=== PATIENT | female | born 1965 | race Caucasian/White ===

== ENCOUNTER 2016-05-02 13:25 | Emergency (ER) | payer BC, OTHER ==
--- NOTE | 2016-05-02 16:18 | DIAGNOSTIC IMAGING REPORT ---
PROCEDURE: XR CHEST 1 VIEW INDICATION: Chest pain. 1 week status post coronary artery bypass graft. TECHNIQUE: Portable AP view (1450 hours). COMPARISON: None. FINDINGS: Suboptimal inspiration. Moderate to marked increased density at the left lung base with moderate parenchymal changes at the right lung base. Mild to moderate pulmonary edema. Status post mediastinotomy. Mild cardiomegaly. Mediastinum is within normal limits (allowing for the degree of inspiration). Thorax is normal. IMPRESSION: 1. Moderate to marked left basilar consolidation/atelectasis/effusion with moderate parenchymal changes at the right lung base. Findings are compatible with pneumonia. 2. Mild cardiomegaly with mild to moderate pulmonary edema. Consider congestive heart failure. 3. Status post median sternotomy and coronary artery bypass graft.
--- NOTE | 2016-05-02 16:23 | DIAGNOSTIC IMAGING REPORT ---
PROCEDURE: CTA THORAX WITH CONTRAST INDICATION: Chest pain. Shortness of breath. 1 week status post CABG. TECHNIQUE: 84 ml of Isovue 370 was injected intravenously and axial images were obtained of the entire thorax with 3D sagittal and coronal MIP reconstructions. COMPARISON: Comparison is made to chest x-ray earlier today. FINDINGS: Study is partially limited due to respiratory motion and suboptimal opacification of peripheral vessels. Allowing for this, no large central emboli are identified (although subtle peripheral emboli would be difficult to exclude) . There is dense consolidation/atelectasis at the left lung base with small to moderate left pleural effusion. There are moderate parenchymal changes throughout the rest of the lungs with superimposed pulmonary edema. Status post median sternotomy. Mild cardiomegaly. Mild degenerative changes of the thoracic spine. IMPRESSION: 1. Allowing for suboptimal opacification of peripheral vessels, no large central emboli are identified (although subtle peripheral emboli would be difficult to exclude). 2. Dense consolidation/atelectasis at the left lung base with small to moderate left pleural effusion. 3. Moderate parenchymal changes throughout the lungs compatible with pneumonia (e.g., viral, aspiration, bacterial). 4. Mild cardiomegaly with superimposed pulmonary edema suggest occult/mild congestive heart failure. 2. Findings discussed with Dr. Justino An. All CT scans at this facility use dose modulation, iterative reconstruction, and/or weight-based dosing when appropriate to reduce radiation dose to as low as reasonably achievable.
--- NOTE | 2016-05-02 16:45 | ED ORDER SUMMARY ---
..... Patient: MICHAEL DELGADO OrderSheet [facility] VisitID: [id number] [address] [place], [place] [id number], F Registration Date/Time: 05/02/2016 ORDER SHEET Weight: 67.5 kg (stated) Allergies: Keflex GENERAL ORDERS: EKG - ER Stat (13:35 05/02/2016 Umer R.NCalvin verbal order read back to Zulma NEWMAN) (13:50 Umer R.N.) Chest 1V Urgent (13:48 05/02/2016 Zulma NEWMAN) (Ack 13:57 Rashard) (14:52 Sixto R.N.) [employer] (Continuous) (13:49 05/02/2016 Zulma NEWMAN) (13:50 Umer R.N.) CBC w Diff Urgent (13:49 05/02/2016 Zulma NEWMAN) (Ack 13:57 Rashard) (14:07 Umer R.N.) CMP Urgent (13:49 05/02/2016 Zulma NEWMAN) (Ack 13:57 Rashard) (14:07 Umer R.N.) UA-Culture if indicated Urgent (13:49 05/02/2016 Zulma NEWMAN) (Ack 13:57 Rashard) (15:13 Sixto R.N.) PT with INR Urgent (13:49 05/02/2016 Zulma NEWMAN) (Ack 13:57 Rashard) (14:07 Umer R.N.) PTT Urgent (13:49 05/02/2016 Zulma NEWMAN) (Ack 13:57 Rashard) (14:07 Umer R.N.) Amylase Urgent (13:49 05/02/2016 Zulma NEWMAN) (Ack 13:57 Rashard) (14:07 Butchitz R.N.) Lipase Urgent (13:49 05/02/2016 Zulma NEWMAN) (Ack 13:57 Rashard) (14:07 Umer R.N.) CPK Urgent (13:49 05/02/2016 Zulma NEWMAN) (Ack 13:57 Rashard) (14:07 Butchitz R.N.) Troponin-I Urgent (13:49 05/02/2016 Zulma NEWMAN) (Ack 13:57 Rashard) (14:07 Umer R.N.) D-Dimer Urgent (13:49 05/02/2016 Zulma NEWMAN) (Ack 13:57 Rashard) (14:07 Umer R.N.) Urine Urgent (13:49 05/02/2016 Zulma NEWMAN) (Ack 13:57 Rashard) (15:13 Sixto R.N.) BNP Urgent (13:49 05/02/2016 Zulma NEWMAN) (Ack 13:57 Rashard) (14:07 Umer R.N.) Oxygen (2 L/min) (NC) (13:49 05/02/2016 Zulma NEWMAN) (13:50 Umer R.N.) Pulse oximeter (13:49 05/02/2016 Zulma NEWMAN) (13:50 Umer R.N.) EKG - ER Stat (13:49 05/02/2016 Zulma NEWMAN) (13:50 Umer R.N.) PCT (Procalcitonin) Urgent (14:29 05/02/2016 Zulma NEWMAN) (14:36 Sixto R.N.) CTA Thorax w Cont (No) (N/A) Urgent (15:03 05/02/2016 Zulma NEWMAN) (15:07 Sixto R.N.) Blood Culture (No) (N/A) Urgent (16:24 05/02/2016 Zulma NEWMAN) (Ack 16:30 Rashard) (17:04 Sixto R.N.) MEDICATION ORDERS: NitroGLYCERIN Paste Topical 1 in. (NOW, to ) (16:40 05/02/2016 Zulma NEWMAN) (16:45 Umer R.N.) Tylenol PO 1,000 mg (NOW) (17:13 05/02/2016 Umer Dhillon.N. verbal order read back to Zulma NEWMAN) (17:14 Umer R.N.) IV FLUIDS: IV Saline Lock (13:49 05/02/2016 Zulma NEWMAN) (13:51 Umer R.N.) IV NS : initial bolus 250 mL (1000 mL/hr), then 125 mL/hr for X1 (NOW) (14:08 05/02/2016 SReitz R.N. verbal order read back to Zulma NEWMAN) (14:10 SReitz R.N.) Morphine IV 4 mg (NOW) (14:09 05/02/2016 SReitz R.N. verbal order read back to Zulma NEWMAN) (14:10 SReitz R.N.) Ativan IV 0.5 mg (HIGH ALERT MEDICATION, NOW) (15:19 05/02/2016 Zulma NEWMAN) (15:27 Attilas R.N.) Lasix IV 40 mg (NOW) (16:26 05/02/2016 Zulma NEWMAN) (Ack 16:31 Attilas R.N.) (16:46 SReitz R.N.) Levaquin IV 750 mg/150 mL (NOW) (16:27 05/02/2016 Zulma NEWMAN) (Ack 16:30 Attilas R.N.) Clindamycin IV 900 mg/50mL (NOW) (16:27 05/02/2016 Zulma NEWMAN) (Ack 16:30 Attilas R.N.) (16:51 SReitz R.N.) ORDER SHEET NOTES: [Electronically signed by Deborah Villalobos R.N. (18:21 05/02/2016)] [Electronically signed by Justino An MD (18:34 05/02/2016)] [Electronically locked/signed by Deborah Villalobos R.N. (18:21 05/02/2016)]
--- NOTE | 2016-05-02 16:45 | ED NURSING NOTES ---
Clinical Report - Nurses [facility] [address] [place] [address] 05/02/2016 13:27 Patient: MICHAEL DELGADO TRIAGE Triage time 13:35. Acuity: LEVEL 2. Chief Complaint: CHEST PAIN and SHORTNESS OF BREATH and DIFFICULTY BREATHING. Alert. No acute distress. ( Pt. states she just was d/c'ed from [place] on wed from post op cardiac cath surgery. She had a 4 way by pass. She is here today because she is having b/l severe chest pain which feels like someone is taking a "knife and stabbing me."). SEPSIS SCREEN: Sepsis Screen. Negative (no infection suspected/documented). LEIDY COMA SCORE: [place] Coma Scale: 15- eyes open spontaneously (4); best verbal response- oriented x 4 (5); best motor response- obeys commands (6). --13:45 Sydni Galvan R.N. 13:36 05/02/16. HR: 60. RR: 28. O2 saturation: 97% on nasal cannula at 4 liters/minute. Temp: 98.1 F. Pain level now 10/10. --13:45 Sydni Galvan R.N. ( re: O2 sat% pt is on home O2 4L). --14:10 Sydni Galvan R.N. 13:36. --15:19 Sydni Galvan R.N. Weight: 67.5 kg stated. Height/Length: 59 inches Per Patient. BMI: 30.1. --13:38 Sydni Galvan R.N. Medications ALPRAZolam Oral 0.5 mg, 3x a day as needed. Aspirin Oral. Atorvastatin Calcium Oral 40 mg, daily. FLUoxetine HCl Oral 20 mg, daily. Metoprolol Tartrate Oral 25 mg, x2 daily. --13:40 Sydni Galvan R.N. Acetaminophen Oral, Q6H as needed. --14:16 Sydni Galvan R.N. Albuterol Sulfate Inhalation. --14:16 Sydni Galvan R.N. Docusate Sodium Oral (Capsule 100 mg), x2 daily. --14:17 Sydni Galvan R.N. Furosemide Oral 40 mg, daily. --14:17 Sydni Galvan R.N. Ibuprofen Oral 600 mg, 4x a day. --14:18 Sydni Galvan R.N. OxyCODONE HCl Oral 5 mg, 1-2 tabs Q6H. --14:19 Sydni Galvan R.N. Potassium Chloride ER Oral (Tablet Extended Release 20 meq) 1 tablet, daily. --14:19 Sydni Galvan R.N. Aspir-81 Oral, daily. --14:19 Sydni Galvan R.N. B-12 Oral, daily. --14:20 Sydni Galvan R.N. BuPROPion HCl Oral 150 mg, daily. --14:20 Sydni Galvan R.N. Clopidogrel 75mg x1 daily. --14:21 Sydni Galvan R.N. Sertraline HCl Oral 100 mg, daily. --14:24 Sydni Galvan R.N. Vitamin D Oral (Tablet 400 unit), daily. --14:24 Sydni Galvan R.N. The following entry was struck and corrected by Sydni Galvan R.N., 14:23 (05/02/16) Reason for correction - other(correction). <<STRICKEN ENTRY-- FLUoxetine HCl Oral. --13:40 Sydni Galvan R.N. --END STRIKE>> The following entry was struck and corrected by Sydni Galvan R.N., 14:20 (05/02/16) Reason for correction - other(correction). <<STRICKEN ENTRY-- Atorvastatin Calcium Oral. --13:40 Sydni Galvan R.N. --END STRIKE>> The following entry was struck and corrected by Sydni Galvan R.N., 14:18 (05/02/16) Reason for correction - other(correction). <<STRICKEN ENTRY-- Metoprolol Tartrate Oral. --13:40 Sydni Galvan R.N. --END STRIKE>> The following entry was struck and corrected by Sydni Galvan R.N., 14:16 (05/02/16) Reason for correction - other(correction). <<STRICKEN ENTRY-- ALPRAZolam Oral. --13:40 Sydni Galvan R.N. --END STRIKE>>. Allergies Keflex. --13:40 Sydni Galvan R.N. The following entry was struck by Sydni Galvan R.N., 13:40 (05/02/16) Reason - other. <<STRICKEN ENTRY-- No Known Drug Allergy. --13:40 Sydni Galvan R.N. --END STRIKE>>. History Arrived by private vehicle. Historian: patient. Accompanied by spouse. Primary physician (Dr. Freedman). This started today. Treatment BLOCKER HEATED METAL FORMS: (oxycodone 10mg BLOCKER HEATED METAL FORMS). PAST MEDICAL HX: Immunizations: status is unknown. SOCIAL HX: Heavy tobacco smoker (cigarette)- less than 1 pack per day. Occasional alcohol use. No drug use. No infectious disease exposure. ABUSE ASSESSMENT: No report of abuse. NUTRITIONAL RISK ASSESSMENT: The nutritional risk assessment revealed no deficiencies. FUNCTIONAL ASSESSMENT: Functional assessment: no impairments noted. LEARNING NEEDS ASSESSMENT: The learning needs assessment revealed no barriers. --13:45 Sydni Galvan R.N. FALL RISK ASSESSMENT: Fall risk assessment completed per protocol. Risk factors identified include patient medications. Fall interventions initiated. Patient placed on stretcher. Side rails up x2. Brakes on Bed in low position. Patient visible from nurses' station and identified as a fall risk by ID band. Family at bedside. Call light in reach of patient. Instructed not to get up without assistance. --15:19 Sydni Galvan R.N. PROBLEMS: Heart Disease. Substance Abuse. Depression. Alcohol Intoxication. Anxiety Reaction. Asthma. Bronchitis. Bronchospasm. --13:40 Sydni Galvan R.N. Hyperlipidemia. --14:25 Sydni Galvan R.N. The following entry was modified by Sydni Galvan R.N., 14:13 Reason - other <<STRICKEN ENTRY-- Myocardial Infarction. --14:12 Sydni Galvan R.N. --END STRIKE>>. ADDITIONAL SURGERIES: Cardiac Catheterization. --13:40 Sydni Galvan R.N. "Open heart bypass". X 2 cardiac caths . --14:12 Sydni Galvan R.N. Interventions ID band on patient. Transported via wheelchair. --13:45 Sydni Galvan R.N. Allergy band on patient. --14:55 Sydni Galvan R.N. PHYSICAL ASSESSMENT 13:35. To room via wheelchair. GENERAL / NEURO / PSYCH: Alert. Oriented X 4. Appears anxious. RESPIRATORY: Mild respiratory distress. CVS: Pulses within normal limits. Capillary refill less than 2 seconds. EXTREMITIES: No lower extremity edema. SKIN: Skin is pale. Skin is warm and dry. --13:46 Sydni Galvan R.N. <<STRICKEN ENTRY-- ( 13:5 b/l incisions noted on UE from graft sights). --16:46 Sydni Galvan R.N. --END STRIKE>> Correction --16:46 Sydni Galvan R.N. ( 13:35 b/l incisions noted on UE from graft sights.). --16:47 Sydni Galvan R.N. NURSING PROGRESS NOTES Oxygen administered by nasal cannula at 4 liters. desk monitor, pulse oximeter and NIBP monitor placed on patient; personnel monitor- Lead II; monitor alarms on. Patient gowned. Head of bed elevated. Two patient identifiers checked. Call light placed in reach. Side rails up x 2. Bed placed in lowest position. Brakes of bed on. Patient ready for evaluation- chart flagged. --13:46 Sydni Galvan R.N. 13:45 05/02/2016 Site #1 started via IV in the right hand with an 20g angiocath, with aseptic technique and good blood return; one attempt. Blood drawn: rainbow set. Labeled in the presence of the patient and sent to the lab. Saline lock flushed with 10 mL saline (Accessed by JEFFERSON Culver). --13:47 Sydni Galvan R.N. 13:51 05/02/2016 Site #2 started via IV in the left hand with an 20g angiocath, with aseptic technique and good blood return; one attempt. Blood drawn: cultures x1. Sent to the lab. Saline lock flushed with 10 mL saline (lactate drawn. Accessed by Sharon Dhillon RN). --13:51 Sydni Galvan R.N. 14:00 05/02/2016 Started bag #1 1000 mL IV Fluids IV NS (Saline); at 1000 mL/hr over 15 minute(s) via site #2 via IV pump. Allergies verified and confirmed 5 rights. IV patency established. IV site checked: no pain, redness, or swelling. IV flushed thoroughly pre- and post-medication administration. --14:10 Sydni Galvan R.N. 14:02 05/02/2016 Morphine IVP 4 mg given over 2 minute(s) via site #2. Allergies verified, confirmed 5 rights and sedative warning given to the patient. IV patency established. IV site checked: no pain, redness, or swelling. IV flushed thoroughly pre- and post-medication administration. --14:10 Sydni Galvan R.N. 14:10 05/02/2016 Morphine IVP Response: no adverse reaction pain is improving. The patient feels better. (pt reports pain is 1/10.). --14:11 Sydni Galvan R.N. 14:11. ( pt. transfered to trauma room in direct vision of nurses station.). --14:14 Sydni Galvan R.N. 14:14 05/02/16. BP: 106/65. HR: 58. RR: 15. O2 saturation: 90%. Pain level now 1/10. --14:15 Sydni Galvan R.N. ( lab at the bedside for re-draw.). --14:25 Sydni Galvan R.N. Care transferred and report given (to SR Deborah). --14:25 Sydni Galvan R.N. 14:29 05/02/2016 IV Fluids IV NS via IV site #2 Rate Changed: bag #1 decreased to 75 mL/hr via IV pump. IV patency established. IV site checked: no pain, redness, or swelling. IV flushed thoroughly. Confirmed 5 Rights. --14:29 Deborah Villalobos R.N. 14:30 05/02/16. BP: 115/76 (regular adult cuff) taken on the left arm, while sitting. HR: 62. RR: 18 (regular). O2 saturation: 94% on nasal cannula at 4 liters/minute. Pain level now: 03/20. --14:31 Deborah Villalobos R.N. ( Patient calm, resting with at bedside). --14:31 Deborah Villalobos R.N. 14:41 05/02/16. BP: 105/67 (regular adult cuff) taken on the right arm, while sitting. HR: 63. RR: 16. O2 saturation: 95% on nasal cannula at 4 liters/minute. --14:42 Deborah Villalobos R.N. <<STRICKEN ENTRY-- Patient transported to radiology by stretcher with tech. (14:48 May 02 2016). --14:48 Deborah Villalobos R.N. --END STRIKE>> Correction --14:52 Deborah Villalobos R.N. ( Patient had a portable CXR done now). --14:52 Deborah Villalobos R.N. Critical value relayed to ED by Chris 15:May 02 2016. Critical value received by Deborah 15:May 02 2016. 6.3 DDimer. Critical value read back. Verified lab result. Provider notifed of critical value (Dr An). ( Chris mitchell 6.3 DDimer). --15:01 Deborah Villalobos R.N. ( CT Deshawn notified of CTA of Thorax, he will come evaluate if this can be done with IV in place at [facility]). --15:06 Deborah Villalobos R.N. 15:02 05/02/16. BP: 117/71 (regular adult cuff) taken on the left arm, while sitting. HR: 66. RR: 16. O2 saturation: 96% on nasal cannula at 4 liters/minute. --15:06 Deborah Villalobos R.N. Patient transported to CT by stretcher with tech. (15:26 May 02 2016). --15:26 Deborah Villalobos R.N. 15:22 05/02/2016 Ativan (LORazepam) IVP 0.5 mg given over 1 minute(s) via site #1. Allergies verified, confirmed 5 rights and sedative warning given to the patient. IV patency established. IV site checked: no pain, redness, or swelling. IV flushed thoroughly pre- and post-medication administration. IVP given by RN. --15:27 Deborah Villalobos R.N. ( [facility] records [facility] --[facility] from CT by phillip with tech. (15:36 May 02 2016). --15:36 Deborah Villalobos R.N. 15:39 05/02/16. BP: 101/62 (regular adult cuff) taken on the left arm, while sitting. HR: 69. RR: 16 (regular). O2 saturation: 98% on nasal cannula at 4 liters/minute. Pain level now: 510. --15:40 Deborah Villalobos R.N. 15:52 05/02/16. BP: 106/73 (regular adult cuff) taken on the left arm, while sitting. HR: 66. RR: 16 (regular). O2 saturation: 98% on nasal cannula at 4 liters/minute. Pain level now: 5/10. --15:53 Deborah Villalobos R.N. 15:43 05/02/2016 Ativan IVP Response: no adverse reaction pain is gone now. Symptoms have improved the patient feels better. --15:53 Deborah Villalobos R.N. 16:12 05/02/16. BP: 108/72 (regular adult cuff) taken on the left arm, while sitting. HR: 62. RR: 18 (regular). O2 saturation: 99% on nasal cannula at 4 liters/minute. Pain level now: 5/10. --16:14 Deborah Villalobos R.N. ( Patient up to use bedside commode, urinated clear yellow urine 250cc). --16:14 Deborah Villalobos R.N. ( Patient given some apple juice per request). --16:27 Deborah Villalobos R.N. 16:26 05/02/16. BP: 108/72. HR: 65. RR: 20. O2 saturation: 100% on nasal cannula at 4 liters/minute. Pain level now: 06/17. --16:27 Deborah Villalobos R.N. 16:45 05/02/2016 NITROGLYCERIN PASTE Topical 1 inch. Applied to the right chest. Allergies verified and confirmed 5 rights. --16:45 Sydni Galvan R.N. 16:46 05/02/2016 Lasix IVP 40 mg given over 2 minute(s) via site #2. Allergies verified and confirmed 5 rights. IV patency established. IV site checked: no pain, redness, or swelling. IV flushed thoroughly pre- and post-medication administration (administered by JEFFERSON Cabrera). --16:46 Sydni Galvan R.N. 16:48 05/02/16. BP: 123/74. HR: 66. RR: 16. O2 saturation: 96%. Pain level now 09/17. --16:51 Sydni Galvan R.N. 16:51 05/02/2016 Started 900 mg of Clindamycin IVPB in bag #1 50 mL; at 100 mL/hr over 30 minute(s) via site #2 via IV pump. Allergies verified and confirmed 5 rights. IV patency established. IV site checked: no pain, redness, or swelling. IV flushed thoroughly pre- and post-medication administration. --16:51 Sydni Galvan R.N. 16:56 05/02/16. BP: 114/84 (regular adult cuff) taken on the left arm, while sitting. HR: 69. RR: 18 (regular). O2 saturation: 97% on nasal cannula at 4 liters/minute. Pain level now: 09/17. --16:56 Deborah Villalobos R.N. 17:14 05/02/2016 Tylenol (Acetaminophen) PO 1000 mg given. Allergies verified and confirmed 5 rights. --17:14 Sydni Galvan R.N. 17:18 05/02/16. ( BP reported to physician, if SBP <90 will take off nitro paste). --17:18 Deborah Villalobos R.N. 17:20 05/02/2016 Clindamycin IVPB Discontinued: bag #2 completed. Total amount infused: 50 mL. IV patency established. IV site checked: no pain, redness, or swelling. IV flushed thoroughly. --17:20 Deborah Villalobos R.N. ( Patient up to use restroom, urinated approximately 250cc clear pale yellow urine). --17:21 Deborah Villalobos R.N. 17:21 05/02/16. BP: 93/71 (regular adult cuff) taken on the right arm, while sitting. HR: 70. RR: 16. O2 saturation: 95% on nasal cannula at 4 liters/minute. Temp: 98.6 F (oral). --17:23 Deborah Villalobos R.N. 17:28 05/02/16. BP: 91/69 (regular adult cuff) taken on the right arm, while sitting. HR: 69 (regular). RR: 18. O2 saturation: 94% on nasal cannula at 4 liters/minute. --17:28 Deborah Villalobos R.N. 17:32 05/02/2016 NITROGLYCERIN PASTE Topical Response: no adverse reaction pain is improving. Symptoms are the same. The patient feels the same. (Nitro paste wiped off due to hypotension.). --17:32 Deborah Villalobos R.N. 17:33 05/02/16. BP: 93/64 (regular adult cuff) taken on the right arm, while sitting. HR: 66. O2 saturation: 92% on nasal cannula at 4 liters/minute. --17:34 Deborah Villalobos R.N. ( Dr An wants SBP >110 before starting Levaquin). --17:36 Deborah Villalobos R.N. 17:35 05/02/16. BP: 97/73 (regular adult cuff) taken on the right arm, while sitting. HR: 75. O2 saturation: 95% on nasal cannula at 4 liters/minute. --17:36 Deborah Villalobos R.N. 17:40 05/02/16. BP: 101/68 (regular adult cuff) taken on the right arm, while sitting. HR: 65. RR: 18. O2 saturation: 94% on nasal cannula at 4 liters/minute. --17:41 Deborah Villalobos R.N. 17:45 05/02/16. BP: 97/70 (regular adult cuff) taken on the right arm, while sitting. HR: 66. O2 saturation: 94% on nasal cannula at 4 liters/minute. --17:46 Deborah Villalobos R.N. 17:51 05/02/16. BP: 94/64 (regular adult cuff) taken on the right arm, while sitting. HR: 72. O2 saturation: 95% on nasal cannula at 4 liters/minute. --17:51 Deborah Villalobos R.N. Intake & Output PO intake: 50. IV fluids: 300 mL. Urine, with return of >1000 mL yellow-colored urine. --17:28 Deborah Villalobos R.N. DISPOSITION / DISCHARGE 18:00 05/02/16. BP: 106/72 (regular adult cuff) taken on the right arm, while sitting. HR: 69. RR: 18 (regular). O2 saturation: 94% on nasal cannula at 4 liters/minute. Pain level now: 09/17. --18:07 Deborah Villalobos R.N. 18:05 05/02/2016 Site #[address] upon transfer; patent, no pain and no signs of infection or infiltration. Good blood return present. Flushed with 10 mL saline; flushes easily. --18:21 Deborah Villalobos R.N. 18:06 05/02/2016 Site #[address] upon transfer; patent, no pain and no signs of infection or infiltration. Good blood return present. Flushed with 10 mL saline; flushes easily. --18:21 Deborah Villalobos R.N. 18:07 05/02/16. Departure time: 18:May 02 2016. Condition at departure: stable. Transferred to [facility]. Summary of care provided to transport team via paper and fax (18:May 02 2016). Transported via stretcher by nurse, EMS and transport team with O2. Report was given to a nurse via a phone call. Report included patient's care, treatment, medications, reviewed medication reconcilliation, and condition (including any recent changes or anticipated changes). All questions were answered. Report was acknowledged and care was transferred. (JEFFERSON Thomas). Patient's personal items include, All property sent with patients . --18:07 Deborah Villalobos R.N. Locked/Released at 05/02/2016 18:21 by Deborah Villalobos R.N.
--- NOTE | 2016-05-02 16:45 | ED ORDER SUMMARY ---
..... Patient: MICHAEL DELGADO OrderSheet [facility] VisitID: [id number] [address] [place], [place] [id number] 50y, F Registration Date/Time: 05/02/2016 ORDER SHEET Weight: 67.5 kg (stated) Allergies: Keflex GENERAL ORDERS: EKG - ER Stat (13:35 05/02/2016 Umer R.NCalvin verbal order read back to Zulma NEWMAN) (13:50 Umer R.N.) Chest 1V Urgent (13:48 05/02/2016 Zulma NEWMAN) (Ack 13:57 Rashard) (14:52 Sixto R.N.) Driver Messenger (Continuous) (13:49 05/02/2016 Zulma NEWMAN) (13:50 Umer R.N.) CBC w Diff Urgent (13:49 05/02/2016 Zulma NEWMAN) (Ack 13:57 Rashard) (14:07 Umer R.N.) CMP Urgent (13:49 05/02/2016 Zulma NEWMAN) (Ack 13:57 Rashard) (14:07 Umer R.N.) UA-Culture if indicated Urgent (13:49 05/02/2016 Zulma NEWMAN) (Ack 13:57 Rashard) (15:13 Sixto R.N.) PT with INR Urgent (13:49 05/02/2016 Zulma NEWMAN) (Ack 13:57 Rashard) (14:07 Umer R.N.) PTT Urgent (13:49 05/02/2016 Zulma NEWMAN) (Ack 13:57 Rashard) (14:07 Umer R.N.) Amylase Urgent (13:49 05/02/2016 Zulma NEWMAN) (Ack 13:57 Rashard) (14:07 Butchitz R.N.) Lipase Urgent (13:49 05/02/2016 Zulma NEWMAN) (Ack 13:57 Rashard) (14:07 Umer R.N.) CPK Urgent (13:49 05/02/2016 Zulma NEWMAN) (Ack 13:57 Rashard) (14:07 Butchitz R.N.) Troponin-I Urgent (13:49 05/02/2016 Zulma NEWMAN) (Ack 13:57 Rashard) (14:07 Umer R.N.) D-Dimer Urgent (13:49 05/02/2016 Zulma NEWMAN) (Ack 13:57 Rashard) (14:07 Umer R.N.) Urine Urgent (13:49 05/02/2016 Zulma NEWMAN) (Ack 13:57 Rashard) (15:13 Sixto R.N.) BNP Urgent (13:49 05/02/2016 Zulma NEWMAN) (Ack 13:57 Rashard) (14:07 Umer R.N.) Oxygen (2 L/min) (NC) (13:49 05/02/2016 Zulma NEWMAN) (13:50 Umer R.N.) Pulse oximeter (13:49 05/02/2016 Zulma NEWMAN) (13:50 Umer R.N.) EKG - ER Stat (13:49 05/02/2016 Zulma NEWMAN) (13:50 Umer R.N.) PCT (Procalcitonin) Urgent (14:29 05/02/2016 Zulma NEWMAN) (14:36 Sixto R.N.) CTA Thorax w Cont (No) (N/A) Urgent (15:03 05/02/2016 Zulma NEWMAN) (15:07 Sixto R.N.) Blood Culture (No) (N/A) Urgent (16:24 05/02/2016 Zulma NEWMAN) (Ack 16:30 Rashard) (17:04 Sixto R.N.) MEDICATION ORDERS: NitroGLYCERIN Paste Topical 1 in. (NOW, to ) (16:40 05/02/2016 Zulma NEWMAN) (16:45 Umer R.N.) Tylenol PO 1,000 mg (NOW) (17:13 05/02/2016 Umer Dhillon.N. verbal order read back to Zulma NEWMAN) (17:14 Umer R.N.) IV FLUIDS: IV Saline Lock (13:49 05/02/2016 Zulma NEWMAN) (13:51 Umer R.N.) IV NS : initial bolus 250 mL (1000 mL/hr), then 125 mL/hr for X1 (NOW) (14:08 05/02/2016 SReitz R.N. verbal order read back to Zulma NEWMAN) (14:10 SReitz R.N.) Morphine IV 4 mg (NOW) (14:09 05/02/2016 SReitz R.N. verbal order read back to Zulma NEWMAN) (14:10 SReitz R.N.) Ativan IV 0.5 mg (HIGH ALERT MEDICATION, NOW) (15:19 05/02/2016 Zulma NEWMAN) (15:27 Attilas R.N.) Lasix IV 40 mg (NOW) (16:26 05/02/2016 Zulma NEWMAN) (Ack 16:31 Attilas R.N.) (16:46 SReitz R.N.) Levaquin IV 750 mg/150 mL (NOW) (16:27 05/02/2016 Zulma NEWMAN) (Ack 16:30 Attilas R.N.) Clindamycin IV 900 mg/50mL (NOW) (16:27 05/02/2016 Zulma NEWMAN) (Ack 16:30 Attilas R.N.) (16:51 SReitz R.N.) ORDER SHEET NOTES: [Electronically signed by Deborah Villalobos R.N. (18:21 05/02/2016)] [Electronically signed by Justino An MD (18:34 05/02/2016)] [Electronically locked/signed by Deborah Villalobos R.N. (18:21 05/02/2016)]
--- NOTE | 2016-05-02 16:45 | ED CLINICAL REPORT ---
Clinical Report - Physicians/Mid Levels [facility] [address] [place] [address] 05/02/2016 13:27 Patient: MICHAEL DELGADO Time Seen: 13:29. Arrived- By private vehicle. Historian- patient. HISTORY OF PRESENT ILLNESS Chief Complaint: CHEST DISCOMFORT. This started today and is still present. It was abrupt in onset and has been constant. Onset during sleep. At its maximum, severity described as 10 / 10. When seen in the E.D., severity described as 9 / 10. Modifying factors- worsened by deep breaths. It is described as sharp and it is described as located in the right chest and left chest area and radiating to the right upper back. The patient has had difficulty breathing. No diaphoresis. Recent medical care: The patient was seen recently at another facility and hospitalized. REVIEW OF SYSTEMS The patient is post-menopausal. She has had chills, palpitations and nausea and experienced sweats. No fever, calf pain, abdominal pain, black stools or bloody stools. No constipation, diarrhea, vomiting or urinary problems. She has had a moderate cough productive of clear, yellow, brown sputum. She has had difficulty breathing (chronically). She has had mild pedal edema involving the right and left leg. All systems otherwise negative, except as recorded above. PAST HISTORY PCP - [facility] - Ramirez Leonard at [facility]. Problems: Hyperlipidemia. Heart Disease. Substance Abuse. Depression. Alcohol Intoxication. Anxiety Reaction. Asthma. Bronchitis. Bronchospasm. Additional Surgeries: "Open heart bypass". Cardiac Catheterization. X 2 cardiac caths . Medications: Vitamin D Oral (Tablet 400 unit), daily. Sertraline HCl Oral 100 mg, daily. Clopidogrel 75mg x1 daily. BuPROPion HCl Oral 150 mg, daily. B-12 Oral, daily. Aspir-81 Oral, daily. Potassium Chloride ER Oral (Tablet Extended Release 20 meq) 1 tablet, daily. OxyCODONE HCl Oral 5 mg, 1-2 tabs Q6H. Ibuprofen Oral 600 mg, 4x a day. Furosemide Oral 40 mg, daily. Docusate Sodium Oral (Capsule 100 mg), x2 daily. Albuterol Sulfate Inhalation. Acetaminophen Oral, Q6H as needed. ALPRAZolam Oral 0.5 mg, 3x a day as needed. Aspirin Oral. Atorvastatin Calcium Oral 40 mg, daily. FLUoxetine HCl Oral 20 mg, daily. Metoprolol Tartrate Oral 25 mg, x2 daily. Allergies: Keflex. SOCIAL HISTORY Smoker- current status unknown (she quit smoking about 10 days ago). Regular alcohol use; consumes two beers a day. No drug use. Is a local resident. She lives with spouse. FAMILY HISTORY No history of aortic aneurysm or dissection. Premature onset heart disease in first-degree relative (mother, father and sibling). ADDITIONAL NOTES The nursing notes have been reviewed. PHYSICAL EXAM Vital Signs: 05/02/2016 13:36 HR: 60. RR: 28. O2 saturation: 97%. Temp: 98.1 F. Have been reviewed. Appearance: Alert. Anxious. Eyes: Pupils equal, round and reactive to light. ENT: Pharynx normal. Neck: Neck supple. CVS: Normal heart rate and rhythm. Heart sounds normal. (healing sternotomy wound and bilateral forearm graft site wounds - C,D,I). Abdomen: Nontender. Bowel sounds normal. No organomegaly. No mass. Back: Normal external inspection. No CVA tenderness. Skin: Skin warm and dry. Normal skin color. Normal skin turgor. Extremities: Mild left-sided calf tenderness. Extremities exhibit normal ROM. No lower extremity edema. LABS, X-RAYS, AND EKG EKG: T wave inversion in lead V3, V4, V5 and V6 and flattening in lead V2. Prior EKG unavailable. Chest X-ray: (IMPRESSION: 1. Moderate to marked left basilar consolidation/atelectasis/effusion with moderate parenchymal changes at the right lung base. Findings are compatible with pneumonia. 2. Mild cardiomegaly with mild to moderate pulmonary edema. Consider congestive heart failure. 3. Status post median sternotomy and coronary artery bypass graft.). The X-rays were interpreted contemporaneously by me and discussed with the radiologist. Chest CT: (IMPRESSION: 1. Allowing for suboptimal opacification of peripheral vessels, no large central emboli are identified (although subtle peripheral emboli would be difficult to exclude). 2. Dense consolidation/atelectasis at the left lung base with small to moderate left pleural effusion. 3. Moderate parenchymal changes throughout the lungs compatible with pneumonia (e.g., viral, aspiration, bacterial). 4. Mild cardiomegaly with superimposed pulmonary edema suggest occult/mild congestive heart failure.). The study was interpreted contemporaneously by me and discussed with the radiologist. Laboratory Tests: UA-Culture if indicated: (LAVELL: 05/02/2016 15:15) ( [facility] 05/02/2016 15:52) Final results Test Result Flag Units (Reference) URINE COLOR YELLOW URINE APPEARANCE CLEAR URINE GLUCOSE NEGATIVE (NEGATIVE) URINE BILIRUBIN NEGATIVE (NEGATIVE) URINE KETONE NEGATIVE (NEGATIVE) URINE SPECIFIC GRAVITY 1.010 (1.010-1.030) URINE PH 6.0 (5.0-8.0) URINE PROTEIN NEGATIVE (NEGATIVE) URINE UROBILINOGEN 0.2 EU/dL (0.2-1.0) URINE NITRITE NEGATIVE (NEGATIVE) URINE BLOOD NEGATIVE (NEGATIVE) URINE LEUK ESTERASE NEGATIVE (NEGATIVE) URINE RBC RARE rbc/hpf (0-1) URINE WBC 0-1 wbc/hpf (0-1) URINE EPITHELIAL CELLS 1-3 EPI/hpf (0-5) URINE BACTERIA TRACE (<1+) (NONE SEEN) URINE COMMENT CULT NOT INDICATED URINE CULTURES ARE SET-UP BASED ON THE FOLLOWING CRITERIA:POSITIVE NITRITEPOSITIVE LEUKOCYTE ESTERASEGREATER THAN 10 WHITE BLOOD CELLSMODERATE (2+) OR GREATER BACTERIA Urine: (LAVELL: 05/02/2016 15:15) ( [facility] 05/02/2016 15:32) Final results Test Result Flag Units (Reference) URINE NEGATIVE CBC w Diff: (LAVELL: 05/02/2016 13:50) ( [facility] 05/02/2016 14:08) Final results Test Result Flag Units (Reference) WHITE BLOOD COUNT 14.0 H K/uL (4.5-11.5) RED BLOOD COUNT 3.04 L M/uL (4.00-5.20) HEMOGLOBIN 9.4 L gm/dL (12.0-16.0) HEMATOCRIT 27.7 L % (36.0-46.0) MEAN CELL VOLUME 91 fL (80-100) MEAN CORPUSCULAR HGB 31 pg (26-34) MEAN CORPUSCULAR HGB CONC 34 g/dL (31-37) RED CELL DISTRIBUTION WIDTH 14.1 % (11.6-14.8) PLATELET COUNT 457 H K/uL (150-400) NEUTROPHIL % 63.4 % (50-75) LYMPH % 21.3 L % (25-40) MONO % 11.1 % (3-14) EOSINOPHIL % 3.1 % (0-4) BASOPHIL % 1.1 % (0-2) PT with INR: (LAVELL: 05/02/2016 13:50) ( MsgRcvd 05/02/2016 15:01) Final results Test Result Flag Units (Reference) INR 1.1 (0.8-1.2) Low Intensity Therapy: INR 1.5-2.0 PT range 18.5-23.1Mod.Intensity Therapy: INR 2.0-3.0 PT range 23.1-31.5High Intensity Therapy: INR 2.5-3.5 PT range 27.4-35.5High Intensity Therapy 2: INR 3.0-4.0 PT range 31.5-39.3 APTT 32 SECONDS (24-34) D-DIMER QUANTITATIVE 6.31 *H ug/mLFEU (0.27-0.52) CRITICAL RESULTS CALLEDCalled to Nato LOMAS 05/02/16 1501Were 2 patient identifiers used? YWas the result read back? YThe primary value of this quantitative assay relates toits negative predictive value (i.e. exclusion) of pulmonaryembolism/deep vein thrombosis/DIC.Elevated levels of d-dimer may also occur with:, age, cancer, inflammation, liver disease,post-op, infection, hematoma, coronary disease, peripheralarteriopathy, bleeding disorders and thrombolytic treatment.Results should be correlated with other clinical andradiological data.Testing Methodology: Latex Immunoassay [id number]: (LAVELL: 05/02/2016 14:27) ( WygRcvd 05/02/2016 15:18) Final results Test Result Flag Units (Reference) PROCALCITONIN <0.5 ng/mL (0-0.5) PCT Concentration: Interpretation : Risk/option for action PCT <=0.5 ng/mL : Systemic : Low risk forinfection(sepsis): progression to severeis not likely. : systemic infection.Local bacterial : CAUTION-PCT levelsinfection is : below 0.5 ng/mL do notpossible. : exclude an infection,because localizedinfections (withoutsystemic signs) may beassociated with suchlow levels. If PCT ismeasured very earlyafter a bacterialchallenge (usually <6hours), these valuesmay still be low. Inthis case PCT shouldbe re-assessed 6-24hours later. PCT >0.5 and : Systemic infection: Moderate risk for<= 2 ng/mL : (sepsis) is : progression to severepossible, but : systemic infection.other conditions : The patient should beare known to : closely monitoredelevate PCT. : both clinically andby re-assessing PCTwithin 6-24 hours. PCT > 2 ng/mL : Systemic infection: High risk for(sepsis) is likely: progression to severeunless other : systemic infection.causes are known. : PCT >= 10 ng/mL : Important systemic: High likelihood ofinflammatory : severe sepsis orresponse, almost : septic shock.exclusively due to:severe bacterial :sepsis or septic :shock. : BNP: (LAVELL: 05/02/2016 13:50) ( [facility] 05/02/2016 14:31) Final results Test Result Flag Units (Reference) B-TYPE NATRIURETIC PEPTIDE 636 H pg/ml (5-100) CMP: (LAVELL: 05/02/2016 13:50) ( [facility] 05/02/2016 14:55) Final results Test Result Flag Units (Reference) GLUCOSE 103 mg/dL (70-110) BUN 10 mg/dL (7-18) CREATININE 0.8 mg/dL (0.6-1.3) Estimated GFR >60 mL/min Estimated GFR- >60 mL/min Note: Persistent reduction over 3 months in eGFR<60 mL/min/1.73 m2 defines CKD. Patients with eGFR values>=60 mL/min/1.73 m2 may also have CKD if evidence ofpersistent proteinuria. Additional information may be foundat www.kidney.org. SODIUM 139 mmol/L (136-145) POTASSIUM 4.2 mmol/L (3.5-5.1) CHLORIDE 105 mmol/L (98-107) CARBON DIOXIDE 26 mmol/L (21-32) CALCIUM 8.0 L mg/dL (8.5-10.1) TOTAL PROTEIN 6.7 g/dL (6.4-8.2) ALBUMIN 2.8 L g/dL (3.3-5.0) BILIRUBIN, TOTAL 0.3 mg/dL (0.0-1.0) ALKALINE PHOSPHATASE 68 U/L (46-116) AST (SGOT) 30 U/L (15-37) ALT (SGPT) 48 U/L (12-78) LIPASE 206 U/L (73-393) AMYLASE 40 U/L (25-115) CPK 84 U/L (24-260) TROPONIN I <0.05 ng/mL (0.00-1.5) TROPONIN REFERENCE RANGE:<0.1 NEGATIVE0.1-1.5 INDETERMINANT>1.5 POSITIVE . PROGRESS AND PROCEDURES Course of Care: Patient is stable. Discussed case with hospitalist, (Yaakov - he is willing to admit the patient. However, the patient and her family request to be transfered to [facility] where her surgery was). Reviewed test results and need for additional work-up. Agreed upon treatment plan, need for patient follow-up and decision to admit. Discussed case with hospitalist, (Dr. Horton at [facility]). Reviewed test results and need for additional work-up. Agreed upon treatment plan, need for patient follow-up and decision to admit. Health care provider will see patient in hospital. Consult obtained from cardiology. Aisha. Case discussed. Phone consult only. Patient/family counseled. Old medical records ordered. Disposition: Benefits, risks and alternatives to transfer explained to patient and family. [facility] CLINICAL IMPRESSION Congestive heart failure. Aspiration pneumonia. Pleurisy. (Electronically signed by Justino An MD 05/02/2016 18:34)
--- NOTE | 2016-05-02 16:45 | ED CLINICAL REPORT ---
Clinical Report - Physicians/Mid Levels [facility] [address] [place] [address] 05/02/2016 13:27 Patient: MICHAEL DELGADO Time Seen: 13:29. Arrived- By private vehicle. Historian- patient. HISTORY OF PRESENT ILLNESS Chief Complaint: CHEST DISCOMFORT. This started today and is still present. It was abrupt in onset and has been constant. Onset during sleep. At its maximum, severity described as 10 / 10. When seen in the E.D., severity described as 9 / 10. Modifying factors- worsened by deep breaths. It is described as sharp and it is described as located in the right chest and left chest area and radiating to the right upper back. The patient has had difficulty breathing. No diaphoresis. Recent medical care: The patient was seen recently at another facility and hospitalized. REVIEW OF SYSTEMS The patient is post-menopausal. She has had chills, palpitations and nausea and experienced sweats. No fever, calf pain, abdominal pain, black stools or bloody stools. No constipation, diarrhea, vomiting or urinary problems. She has had a moderate cough productive of clear, yellow, brown sputum. She has had difficulty breathing (chronically). She has had mild pedal edema involving the right and left leg. All systems otherwise negative, except as recorded above. PAST HISTORY PCP - [facility] - Ramirez Leonard at [place]. Problems: Hyperlipidemia. Heart Disease. Substance Abuse. Depression. Alcohol Intoxication. Anxiety Reaction. Asthma. Bronchitis. Bronchospasm. Additional Surgeries: "Open heart bypass". Cardiac Catheterization. X 2 cardiac caths . Medications: Vitamin D Oral (Tablet 400 unit), daily. Sertraline HCl Oral 100 mg, daily. Clopidogrel 75mg x1 daily. BuPROPion HCl Oral 150 mg, daily. B-12 Oral, daily. Aspir-81 Oral, daily. Potassium Chloride ER Oral (Tablet Extended Release 20 meq) 1 tablet, daily. OxyCODONE HCl Oral 5 mg, 1-2 tabs Q6H. Ibuprofen Oral 600 mg, 4x a day. Furosemide Oral 40 mg, daily. Docusate Sodium Oral (Capsule 100 mg), x2 daily. Albuterol Sulfate Inhalation. Acetaminophen Oral, Q6H as needed. ALPRAZolam Oral 0.5 mg, 3x a day as needed. Aspirin Oral. Atorvastatin Calcium Oral 40 mg, daily. FLUoxetine HCl Oral 20 mg, daily. Metoprolol Tartrate Oral 25 mg, x2 daily. Allergies: Keflex. SOCIAL HISTORY Smoker- current status unknown (she quit smoking about 10 days ago). Regular alcohol use; consumes two beers a day. No drug use. Is a local resident. She lives with spouse. FAMILY HISTORY No history of aortic aneurysm or dissection. Premature onset heart disease in first-degree relative (mother, father and sibling). ADDITIONAL NOTES The nursing notes have been reviewed. PHYSICAL EXAM Vital Signs: 05/02/2016 13:36 HR: 60. RR: 28. O2 saturation: 97%. Temp: 98.1 F. Have been reviewed. Appearance: Alert. Anxious. Eyes: Pupils equal, round and reactive to light. ENT: Pharynx normal. Neck: Neck supple. CVS: Normal heart rate and rhythm. Heart sounds normal. (healing sternotomy wound and bilateral forearm graft site wounds - C,D,I). Abdomen: Nontender. Bowel sounds normal. No organomegaly. No mass. Back: Normal external inspection. No CVA tenderness. Skin: Skin warm and dry. Normal skin color. Normal skin turgor. Extremities: Mild left-sided calf tenderness. Extremities exhibit normal ROM. No lower extremity edema. LABS, X-RAYS, AND EKG EKG: T wave inversion in lead V3, V4, V5 and V6 and flattening in lead V2. Prior EKG unavailable. Chest X-ray: (IMPRESSION: 1. Moderate to marked left basilar consolidation/atelectasis/effusion with moderate parenchymal changes at the right lung base. Findings are compatible with pneumonia. 2. Mild cardiomegaly with mild to moderate pulmonary edema. Consider congestive heart failure. 3. Status post median sternotomy and coronary artery bypass graft.). The X-rays were interpreted contemporaneously by me and discussed with the radiologist. Chest CT: (IMPRESSION: 1. Allowing for suboptimal opacification of peripheral vessels, no large central emboli are identified (although subtle peripheral emboli would be difficult to exclude). 2. Dense consolidation/atelectasis at the left lung base with small to moderate left pleural effusion. 3. Moderate parenchymal changes throughout the lungs compatible with pneumonia (e.g., viral, aspiration, bacterial). 4. Mild cardiomegaly with superimposed pulmonary edema suggest occult/mild congestive heart failure.). The study was interpreted contemporaneously by me and discussed with the radiologist. Laboratory Tests: UA-Culture if indicated: (LAVELL: 05/02/2016 15:15) ( [facility] 05/02/2016 15:52) Final results Test Result Flag Units (Reference) URINE COLOR YELLOW URINE APPEARANCE CLEAR URINE GLUCOSE NEGATIVE (NEGATIVE) URINE BILIRUBIN NEGATIVE (NEGATIVE) URINE KETONE NEGATIVE (NEGATIVE) URINE SPECIFIC GRAVITY 1.010 (1.010-1.030) URINE PH 6.0 (5.0-8.0) URINE PROTEIN NEGATIVE (NEGATIVE) URINE UROBILINOGEN 0.2 EU/dL (0.2-1.0) URINE NITRITE NEGATIVE (NEGATIVE) URINE BLOOD NEGATIVE (NEGATIVE) URINE LEUK ESTERASE NEGATIVE (NEGATIVE) URINE RBC RARE rbc/hpf (0-1) URINE WBC 0-1 wbc/hpf (0-1) URINE EPITHELIAL CELLS 1-3 EPI/hpf (0-5) URINE BACTERIA TRACE (<1+) (NONE SEEN) URINE COMMENT CULT NOT INDICATED URINE CULTURES ARE SET-UP BASED ON THE FOLLOWING CRITERIA:POSITIVE NITRITEPOSITIVE LEUKOCYTE ESTERASEGREATER THAN 10 WHITE BLOOD CELLSMODERATE (2+) OR GREATER BACTERIA Urine: (LAVELL: 05/02/2016 15:15) ( [facility] 05/02/2016 15:32) Final results Test Result Flag Units (Reference) URINE NEGATIVE CBC w Diff: (LAVELL: 05/02/2016 13:50) ( [facility] 05/02/2016 14:08) Final results Test Result Flag Units (Reference) WHITE BLOOD COUNT 14.0 H K/uL (4.5-11.5) RED BLOOD COUNT 3.04 L M/uL (4.00-5.20) HEMOGLOBIN 9.4 L gm/dL (12.0-16.0) HEMATOCRIT 27.7 L % (36.0-46.0) MEAN CELL VOLUME 91 fL (80-100) MEAN CORPUSCULAR HGB 31 pg (26-34) MEAN CORPUSCULAR HGB CONC 34 g/dL (31-37) RED CELL DISTRIBUTION WIDTH 14.1 % (11.6-14.8) PLATELET COUNT 457 H K/uL (150-400) NEUTROPHIL % 63.4 % (50-75) LYMPH % 21.3 L % (25-40) MONO % 11.1 % (3-14) EOSINOPHIL % 3.1 % (0-4) BASOPHIL % 1.1 % (0-2) PT with INR: (LAVELL: 05/02/2016 13:50) ( MsgRcvd 05/02/2016 15:01) Final results Test Result Flag Units (Reference) INR 1.1 (0.8-1.2) Low Intensity Therapy: INR 1.5-2.0 PT range 18.5-23.1Mod.Intensity Therapy: INR 2.0-3.0 PT range 23.1-31.5High Intensity Therapy: INR 2.5-3.5 PT range 27.4-35.5High Intensity Therapy 2: INR 3.0-4.0 PT range 31.5-39.3 APTT 32 SECONDS (24-34) D-DIMER QUANTITATIVE 6.31 *H ug/mLFEU (0.27-0.52) CRITICAL RESULTS CALLEDCalled to Nato LOMAS 05/02/16 1501Were 2 patient identifiers used? YWas the result read back? YThe primary value of this quantitative assay relates toits negative predictive value (i.e. exclusion) of pulmonaryembolism/deep vein thrombosis/DIC.Elevated levels of d-dimer may also occur with:, age, cancer, inflammation, liver disease,post-op, infection, hematoma, coronary disease, peripheralarteriopathy, bleeding disorders and thrombolytic treatment.Results should be correlated with other clinical andradiological data.Testing Methodology: Latex Immunoassay [id number]: (LAVELL: 05/02/2016 14:27) ( NmgRcvd 05/02/2016 15:18) Final results Test Result Flag Units (Reference) PROCALCITONIN <0.5 ng/mL (0-0.5) PCT Concentration: Interpretation : Risk/option for action PCT <=0.5 ng/mL : Systemic : Low risk forinfection(sepsis): progression to severeis not likely. : systemic infection.Local bacterial : CAUTION-PCT levelsinfection is : below 0.5 ng/mL do notpossible. : exclude an infection,because localizedinfections (withoutsystemic signs) may beassociated with suchlow levels. If PCT ismeasured very earlyafter a bacterialchallenge (usually <6hours), these valuesmay still be low. Inthis case PCT shouldbe re-assessed 6-24hours later. PCT >0.5 and : Systemic infection: Moderate risk for<= 2 ng/mL : (sepsis) is : progression to severepossible, but : systemic infection.other conditions : The patient should beare known to : closely monitoredelevate PCT. : both clinically andby re-assessing PCTwithin 6-24 hours. PCT > 2 ng/mL : Systemic infection: High risk for(sepsis) is likely: progression to severeunless other : systemic infection.causes are known. : PCT >= 10 ng/mL : Important systemic: High likelihood ofinflammatory : severe sepsis orresponse, almost : septic shock.exclusively due to:severe bacterial :sepsis or septic :shock. : BNP: (LAVELL: 05/02/2016 13:50) ( [facility] 05/02/2016 14:31) Final results Test Result Flag Units (Reference) B-TYPE NATRIURETIC PEPTIDE 636 H pg/ml (5-100) CMP: (LAVELL: 05/02/2016 13:50) ( [facility] [place] 14:55[place] Final results Test Result Flag Units (Reference) GLUCOSE 103 mg/dL (70-110) BUN 10 mg/dL (7-18) CREATININE 0.8 mg/dL (0.6-1.3) Estimated GFR >60 mL/min Estimated GFR- >60 mL/min Note: Persistent reduction over 3 months in eGFR<60 mL/min/1.73 m2 defines CKD. Patients with eGFR values>=60 mL/min/1.73 m2 may also have CKD if evidence ofpersistent proteinuria. Additional information may be foundat www.kidney.org. SODIUM 139 mmol/L (136-145) POTASSIUM 4.2 mmol/L (3.5-5.1) CHLORIDE 105 mmol/L (98-107) CARBON DIOXIDE 26 mmol/L (21-32) CALCIUM 8.0 L mg/dL (8.5-10.1) TOTAL PROTEIN 6.7 g/dL (6.4-8.2) ALBUMIN 2.8 L g/dL (3.3-5.0) BILIRUBIN, TOTAL 0.3 mg/dL (0.0-1.0) ALKALINE PHOSPHATASE 68 U/L (46-116) AST (SGOT) 30 U/L (15-37) ALT (SGPT) 48 U/L (12-78) LIPASE 206 U/L (73-393) AMYLASE 40 U/L (25-115) CPK 84 U/L (24-260) TROPONIN I <0.05 ng/mL (0.00-1.5) TROPONIN REFERENCE RANGE:<0.1 NEGATIVE0.1-1.5 INDETERMINANT>1.5 POSITIVE . PROGRESS AND PROCEDURES Course of Care: Patient is stable. Discussed case with hospitalist, (Yaakov - he is willing to admit the patient. However, the patient and her family request to be transfered to [place] where her surgery was). Reviewed test results and need for additional work-up. Agreed upon treatment plan, need for patient follow-up and decision to admit. Discussed case with hospitalist, (Dr. Horton at [place]). Reviewed test results and need for additional work-up. Agreed upon treatment plan, need for patient follow-up and decision to admit. Health care provider will see patient in hospital. Consult obtained from cardiology. Aisha. Case discussed. Phone consult only. Patient/family counseled. Old medical records ordered. Disposition: Benefits, risks and alternatives to transfer explained to patient and family. [facility] CLINICAL IMPRESSION Congestive heart failure. Aspiration pneumonia. Pleurisy. (Electronically signed by Justino An MD 05/02/2016 18:34)
--- NOTE | 2016-05-02 18:34 | ED MAR SUMMARY ---
..... Medication Administration Record [facility] [address] [place] [address] Patient: MICHAEL DELGADO Visit ID: [id number] 50y, F Weight: 67.5 kg Height/Length: 59 in BMI: 30.1 ALLERGIES: Keflex Start 14:00 05/02/2016 Sydni Galvan R.N. Medication Administered: IV NS (SALINE), Dose: IV Fluids over 15 minute(s), Rate: 1000 mL/hr, Dispensed: 1000 mL bag, Site: #2 left hand. Medication Ordered: IV NS : initial bolus 250 mL (1000 mL/hr), then 125 mL/hr for X1 (NOW). Given 14:02 05/02/2016 Sydni Galvan R.N. Medication Administered: MORPHINE [IVP], Dose: 4 mg IVP over 2 minute(s), Site: #2 left hand. Medication Ordered: Morphine IV 4 mg (NOW). Given 15:22 05/02/2016 Deborah Villalobos R.N. Medication Administered: ATIVAN [IVP] (LORAZEPAM), Dose: 0.5 mg IVP over 1 minute(s), Site: #1 right hand. Medication Ordered: Ativan IV 0.5 mg (HIGH ALERT MEDICATION, NOW). Given 16:45 05/02/2016 Sydni Galvan R.N. Medication Administered: NITROGLYCERIN PASTE [TOPICAL], Dose: 1 in. Topical. Medication Ordered: NitroGLYCERIN Paste Topical 1 in. (NOW, to ). Given 16:46 05/02/2016 Sydni Galvan R.N. Medication Administered: LASIX [IVP], Dose: 40 mg IVP over 2 minute(s), Site: #2 left hand. Medication Ordered: Lasix IV 40 mg (NOW). Start 16:51 05/02/2016 Sydni Galvan R.N., Stop 17:20 05/02/2016 Deborah Villalobos R.N. Medication Administered: CLINDAMYCIN [IVPB], Dose: 900 mg IVPB over 30 minute(s), Rate: 100 mL/hr, Dispensed: 50 mL bag, Site: #2 left hand. Medication Ordered: Clindamycin IV 900 mg/50mL (NOW). Given 17:14 05/02/2016 Sydni Galvan R.N. Medication Administered: TYLENOL [PO] (ACETAMINOPHEN), Dose: 1000 mg PO. Medication Ordered: Tylenol PO 1,000 mg (NOW).
--- NOTE | 2016-05-02 18:34 | ED MED RECONCILIATION SUMMARY ---
Patient: MICHAEL DELGADO Medication Reconciliation Report [facility] VisitID: [id number] [address] [place] [address] 50y, F Registration Date/Time: 05/02/2016 Weight: 67.5 kg Height/Length: 59 in. BMI: 30.1 ALLERGIES: Keflex The patient's Home Medications are listed below: THE FOLLOWING MEDICATIONS NEED TO BE RECONCILED: Acetaminophen Oral, Q6H Albuterol Sulfate Inhalation ALPRAZolam Oral 0.5 mg, 3x a day Aspir-81 Oral, daily Aspirin Oral Atorvastatin Calcium Oral 40 mg, daily B-12 Oral, daily BuPROPion HCl Oral 150 mg, daily Clopidogrel 75mg x1 daily Docusate Sodium Oral (100 mg), x2 daily FLUoxetine HCl Oral 20 mg, daily Furosemide Oral 40 mg, daily Ibuprofen Oral 600 mg, 4x a day Metoprolol Tartrate Oral 25 mg, x2 daily OxyCODONE HCl Oral 5 mg, 1-2 tabs Q6H Potassium Chloride ER Oral (20 meq) 1 tablet, daily Sertraline HCl Oral 100 mg, daily Vitamin D Oral (400 unit), daily The source(s) of the original Home Medication information: Not obtained. The following Medications were given to the patient in the Emergency Department: IV NS IV Fluids bolus 0, then 1000 mL/hr, administered: 05/02/2016 2:00:00 PM Morphine [IVP] IVP 4 mg, administered: 05/02/2016 2:02:00 PM Ativan [IVP] IVP 0.5 mg, administered: 05/02/2016 3:22:00 PM NITROGLYCERIN PASTE [TOPICAL] Topical 1 in., administered: 05/02/2016 4:45:00 PM Lasix [IVP] IVP 40 mg, administered: 05/02/2016 4:46:00 PM Clindamycin [IVPB] IVPB bolus 0, then 900 mg 100 mL/hr, administered: 05/02/2016 4:51:00 PM Tylenol [PO] PO 1000 mg, administered: 05/02/2016 5:14:00 PM The following Medications were prescribed to the patient: None.
--- NOTE | 2016-05-02 18:34 | ED DISCHARGE INSTRUCTIONS ---
Patient: MICHAEL DELGADO General Instructions [facility] VisitID: [id number] [address] [place] [address] 50y, F Registration Date/Time: 05/02/2016 Congestive heart failure. Aspiration pneumonia. Pleurisy. (Electronically signed by Justino An MD 05/02/2016 18:34)
--- NOTE | 2016-05-02 18:34 | ED MED RECONCILIATION SUMMARY ---
Patient: MICHAEL DELGADO Medication Reconciliation Report [facility] VisitID: [id number] [address] [place] [address] 50y, F Registration Date/Time: 05/02/2016 Weight: 67.5 kg Height/Length: 59 in. BMI: 30.1 ALLERGIES: Keflex The patient's Home Medications are listed below: THE FOLLOWING MEDICATIONS NEED TO BE RECONCILED: Acetaminophen Oral, Q6H Albuterol Sulfate Inhalation ALPRAZolam Oral 0.5 mg, 3x a day Aspir-81 Oral, daily Aspirin Oral Atorvastatin Calcium Oral 40 mg, daily B-12 Oral, daily BuPROPion HCl Oral 150 mg, daily Clopidogrel 75mg x1 daily Docusate Sodium Oral (100 mg), x2 daily FLUoxetine HCl Oral 20 mg, daily Furosemide Oral 40 mg, daily Ibuprofen Oral 600 mg, 4x a day Metoprolol Tartrate Oral 25 mg, x2 daily OxyCODONE HCl Oral 5 mg, 1-2 tabs Q6H Potassium Chloride ER Oral (20 meq) 1 tablet, daily Sertraline HCl Oral 100 mg, daily Vitamin D Oral (400 unit), daily The source(s) of the original Home Medication information: Not obtained. The following Medications were given to the patient in the Emergency Department: IV NS IV Fluids bolus 0, then 1000 mL/hr, administered: 05/02/2016 2:00:00 PM Morphine [IVP] IVP 4 mg, administered: 05/02/2016 2:02:00 PM Ativan [IVP] IVP 0.5 mg, administered: 05/02/2016 3:22:00 PM NITROGLYCERIN PASTE [TOPICAL] Topical 1 in., administered: 05/02/2016 4:45:00 PM Lasix [IVP] IVP 40 mg, administered: 05/02/2016 4:46:00 PM Clindamycin [IVPB] IVPB bolus 0, then 900 mg 100 mL/hr, administered: 05/02/2016 4:51:00 PM Tylenol [PO] PO 1000 mg, administered: 05/02/2016 5:14:00 PM The following Medications were prescribed to the patient: None.
--- NOTE | 2016-05-02 18:34 | ED DISCHARGE INSTRUCTIONS ---
Patient: MICHAEL DELGADO General Instructions [facility] VisitID: [id number] [address] [place] [address] 50y, F Registration Date/Time: 05/02/2016 Congestive heart failure. Aspiration pneumonia. Pleurisy. (Electronically signed by Justino An MD 05/02/2016 18:34)
--- NOTE | 2016-05-02 18:34 | ED MAR SUMMARY ---
..... Medication Administration Record [facility] [address] [place] [address] Patient: MICHAEL DELGADO Visit ID: [id number] 50y, F Weight: 67.5 kg Height/Length: 59 in BMI: 30.1 ALLERGIES: Keflex Start 14:00 05/02/2016 Sydni Galvan R.N. Medication Administered: IV NS (SALINE), Dose: IV Fluids over 15 minute(s), Rate: 1000 mL/hr, Dispensed: 1000 mL bag, Site: #2 left hand. Medication Ordered: IV NS : initial bolus 250 mL (1000 mL/hr), then 125 mL/hr for X1 (NOW). Given 14:02 05/02/2016 Sydni Galvan R.N. Medication Administered: MORPHINE [IVP], Dose: 4 mg IVP over 2 minute(s), Site: #2 left hand. Medication Ordered: Morphine IV 4 mg (NOW). Given 15:22 05/02/2016 Deborah Villalobos R.N. Medication Administered: ATIVAN [IVP] (LORAZEPAM), Dose: 0.5 mg IVP over 1 minute(s), Site: #1 right hand. Medication Ordered: Ativan IV 0.5 mg (HIGH ALERT MEDICATION, NOW). Given 16:45 05/02/2016 Sydni Galvan R.N. Medication Administered: NITROGLYCERIN PASTE [TOPICAL], Dose: 1 in. Topical. Medication Ordered: NitroGLYCERIN Paste Topical 1 in. (NOW, to ). Given 16:46 05/02/2016 Sydni Galvan R.N. Medication Administered: LASIX [IVP], Dose: 40 mg IVP over 2 minute(s), Site: #2 left hand. Medication Ordered: Lasix IV 40 mg (NOW). Start 16:51 05/02/2016 Sydni Galvan R.N., Stop 17:20 05/02/2016 Deborah Villalobos R.N. Medication Administered: CLINDAMYCIN [IVPB], Dose: 900 mg IVPB over 30 minute(s), Rate: 100 mL/hr, Dispensed: 50 mL bag, Site: #2 left hand. Medication Ordered: Clindamycin IV 900 mg/50mL (NOW). Given 17:14 05/02/2016 Sydni Galvan R.N. Medication Administered: TYLENOL [PO] (ACETAMINOPHEN), Dose: 1000 mg PO. Medication Ordered: Tylenol PO 1,000 mg (NOW).
== END 2016-05-02 18:06 | disposition short-term general hospital (02) ==
LOC: ED SRH 13:25 → TRANS SRH 16:55 → ED SRH 18:06
DX: I50.9 Heart failure, unspecified (principal); J69.0 Pneumonitis due to inhalation of food and vomit; R09.1 Pleurisy; Z87.891 Personal history of nicotine dependence; Z79.891 Long term (current) use of opiate analgesic; Z79.51 Long term (current) use of inhaled steroids; Z79.82 Long term (current) use of aspirin; Z79.899 Other long term (current) drug therapy; Z88.1 Allergy status to other antibiotic agents; J45.909 Unspecified asthma, uncomplicated
CPT/HCPCS: 90004; 90065; 90074; 90100; 90616; 91320; 91556; 92235; 92530; 92610; 93004; 93070; 94001; 94060; 95059

== ENCOUNTER 2016-05-14 10:18 | Outpatient (CLI) | payer OTHER ==
--- NOTE | 2016-05-14 11:29 | DIAGNOSTIC IMAGING REPORT ---
PROCEDURE: XR CHEST 2 VIEW INDICATION: POST OP TECHNIQUE: PA and lateral views. COMPARISON: Chest 05/02/2016 FINDINGS: There is clearing of the right lung. The infiltrate in the left lower lobe has decreased. There is a persistent small pleural effusion. IMPRESSION: 1. Clearing of the right lung. 2. Decrease in the left lower lobe infiltrate and effusion.
== END 2016-05-14 23:00 | disposition home or self-care (01) ==
LOC: XR SRH 10:18
DX: J90 Pleural effusion, not elsewhere classified (principal); Z95.1 Presence of aortocoronary bypass graft

== ENCOUNTER 2016-06-15 10:12 | Emergency (ER) | payer OTHER ==
--- NOTE | 2016-06-15 11:10 | DIAGNOSTIC IMAGING REPORT ---
PROCEDURE: XR CHEST 1 VIEW INDICATION: CHEST PAIN TECHNIQUE: Single view chest. 1032 hours COMPARISON: 05/14/2016 FINDINGS: Normal heart size. Median sternotomy changes present. No central vascular congestion. There is a new fracture of the superior most sternal wire. Interval resolution of left lateral lower lobe density with slight residual pleural thickening and scarring. The right lung is clear. No visible effusions or pneumothorax. Intact osseous structures. IMPRESSION: 1. No acute process. 2. Residual left lateral pleural thickening and slight parenchymal scarring, but overall clearance of prior pneumonia. 3. Recent sternal wire fracture.
--- NOTE | 2016-06-15 12:22 | ED CLINICAL REPORT ---
Clinical Report - Physicians/Mid Levels [facility] [address] [place] [address] 06/15/2016 10:12 Patient: MICHAEL DELGADO Time Seen: 10:21. Arrived- By private vehicle. Historian- patient. HISTORY OF PRESENT ILLNESS Chief Complaint: CHEST PAIN. At its maximum, severity described as 10 / 10. When seen in the E.D., severity described as 6 / 10. This started today at about 8:30 AM and is still present but is better now. It was abrupt in onset. It is described as sharp and "stabbing" and it is described as located in the central chest area. No radiation. The patient has had difficulty breathing and nausea. She has had mild vomiting. The vomiting has occurred only once. No blood-tinged emesis or coffee-grounds emesis. (she says that she fell yesterday and landed on her trunk). REVIEW OF SYSTEMS No chills, fever, sweats or calf pain. All systems otherwise negative, except as recorded above. PAST HISTORY PCP - [facility] Director - Aisha CT surgeon - Juan. SOCIAL HISTORY Former smoker, end date 05/2016. Occasional alcohol use. No drug use. FAMILY HISTORY Premature onset heart disease in first-degree relative (mother and sibling); stroke in first-degree relative (father). ADDITIONAL NOTES The nursing notes have been reviewed. PHYSICAL EXAM Vital Signs: 06/15/2016 10:17 BP: 113/91. HR: 110. RR: 26. O2 saturation: 100%. Temp: 98.7 F. Pain level now: 10/10. Have been reviewed. Appearance: Alert. Anxious. Eyes: Pupils equal, round and reactive to light. ENT: Pharynx normal. Neck: Normal inspection. Neck supple. CVS: Normal heart rate and rhythm. Heart sounds normal. Respiratory: No respiratory distress. Chest pain reproducible with palpation of the sternum and with deep breathing. Breath sounds normal. Abdomen: Soft and nontender. Bowel sounds normal. No organomegaly. No mass. Back: Normal external inspection. No CVA tenderness. Skin: Skin warm. Normal skin color. Normal skin turgor. Extremities: Extremities exhibit normal ROM. No calf tenderness. No lower extremity edema. LABS, X-RAYS, AND EKG EKG: Rate: 97. Left atrial enlargement. Non-specific ST segment / T wave abnormalities. Prolonged QT (364 ms). Prolonged QTc (462 ms). EKG unchanged when compared with prior EKG. (02 May 2016). The study has been independently viewed by me. Chest X-ray: (IMPRESSION: 1. No acute process. 2. Residual left lateral pleural thickening and slight parenchymal scarring, but overall clearance of prior pneumonia. 3. Recent sternal wire fracture.). The X-rays were interpreted by the radiologist and contemporaneously by me. Laboratory Tests: UA-Culture if indicated: (LAVELL: 06/15/2016 10:50) ( MsgRcvd 06/15/2016 11:33) Final results Test Result Flag Units (Reference) URINE COLOR YELLOW URINE APPEARANCE CLEAR URINE GLUCOSE NEGATIVE (NEGATIVE) URINE BILIRUBIN NEGATIVE (NEGATIVE) URINE KETONE NEGATIVE (NEGATIVE) URINE SPECIFIC GRAVITY 1.025 (1.010-1.030) URINE PH 6.0 (5.0-8.0) URINE PROTEIN TRACE (NEGATIVE) URINE UROBILINOGEN 0.2 EU/dL (0.2-1.0) URINE NITRITE NEGATIVE (NEGATIVE) URINE BLOOD NEGATIVE (NEGATIVE) URINE LEUK ESTERASE NEGATIVE (NEGATIVE) URINE RBC RARE rbc/hpf (0-1) URINE WBC 0-1 wbc/hpf (0-1) URINE EPITHELIAL CELLS 10-15 EPI/hpf (0-5) URINE BACTERIA FEW (1+) (NONE SEEN) URINE COMMENT CULT NOT INDICATED 2-4 HYALINE CASTS/LPFURINE CULTURES ARE SET-UP BASED ON THE FOLLOWING CRITERIA:POSITIVE NITRITEPOSITIVE LEUKOCYTE ESTERASEGREATER THAN 10 WHITE BLOOD CELLSMODERATE (2+) OR GREATER BACTERIA Urine: (LAVELL: 06/15/2016 10:50) ( MsgRcvd 06/15/2016 11:13) Final results Test Result Flag Units (Reference) URINE NEGATIVE CBC w Diff: (LAVELL: 06/15/2016 10:30) ( MsgRcvd 06/15/2016 10:42) Final results Test Result Flag Units (Reference) WHITE BLOOD COUNT 11.2 K/uL (4.5-11.5) RED BLOOD COUNT 4.74 M/uL (4.00-5.20) HEMOGLOBIN 13.7 gm/dL (12.0-16.0) HEMATOCRIT 41.0 % (36.0-46.0) MEAN CELL VOLUME 87 fL (80-100) MEAN CORPUSCULAR HGB 29 pg (26-34) MEAN CORPUSCULAR HGB CONC 33 g/dL (31-37) RED CELL DISTRIBUTION WIDTH 13.2 % (11.6-14.8) PLATELET COUNT 319 K/uL (150-400) NEUTROPHIL % 62.0 % (50-75) LYMPH % 31.7 % (25-40) MONO % 5.6 % (3-14) EOSINOPHIL % 0.3 % (0-4) BASOPHIL % 0.4 % (0-2) PT with INR: (LAVELL: 06/15/2016 10:30) ( MsgRcvd 06/15/2016 11:26) Final results Test Result Flag Units (Reference) INR 1.1 (0.8-1.2) Low Intensity Therapy: INR 1.5-2.0 PT range 18.5-23.1Mod.Intensity Therapy: INR 2.0-3.0 PT range 23.1-31.5High Intensity Therapy: INR 2.5-3.5 PT range 27.4-35.5High Intensity Therapy 2: INR 3.0-4.0 PT range 31.5-39.3 APTT 26 SECONDS (24-34) D-DIMER QUANTITATIVE 0.49 ug/mLFEU (0.27-0.52) The primary value of this quantitative assay relates toits negative predictive value (i.e. exclusion) of pulmonaryembolism/deep vein thrombosis/DIC.Elevated levels of d-dimer may also occur with:, age, cancer, inflammation, liver disease,post-op, infection, hematoma, coronary disease, peripheralarteriopathy, bleeding disorders and thrombolytic treatment.Results should be correlated with other clinical andradiological data.Testing Methodology: Latex Immunoassay BNP: (LAVELL: 06/15/2016 10:30) ( MsgRcvd 06/15/2016 11:22) Final results Test Result Flag Units (Reference) B-TYPE NATRIURETIC PEPTIDE 31.9 pg/ml (5-100) CMP: (LAVELL: 06/15/2016 10:30) ( MsgRcvd 06/15/2016 11:07) Final results Test Result Flag Units (Reference) GLUCOSE 112 H mg/dL (70-110) BUN 12 mg/dL (7-18) CREATININE 0.8 mg/dL (0.6-1.3) Estimated GFR >60 mL/min Estimated GFR- >60 mL/min Note: Persistent reduction over 3 months in eGFR<60 mL/min/1.73 m2 defines CKD. Patients with eGFR values>=60 mL/min/1.73 m2 may also have CKD if evidence ofpersistent proteinuria. Additional information may be foundat www.[email or web address].org. SODIUM 144 mmol/L (136-145) POTASSIUM 4.1 mmol/L (3.5-5.1) CHLORIDE 106 mmol/L (98-107) CARBON DIOXIDE 23 mmol/L (21-32) CALCIUM 9.6 mg/dL (8.5-10.1) TOTAL PROTEIN 8.6 H g/dL (6.4-8.2) ALBUMIN 4.1 g/dL (3.3-5.0) BILIRUBIN, TOTAL 0.5 mg/dL (0.0-1.0) ALKALINE PHOSPHATASE 79 U/L (46-116) AST (SGOT) 30 U/L (15-37) ALT (SGPT) 43 U/L (12-78) LIPASE 175 U/L (73-393) AMYLASE 38 U/L (25-115) CPK 128 U/L (24-260) TROPONIN I <0.05 ng/mL (0.00-1.5) TROPONIN REFERENCE RANGE:<0.1 NEGATIVE0.1-1.5 INDETERMINANT>1.5 POSITIVE . PROGRESS AND PROCEDURES Consult obtained from cardiology. Dr. Leonard - he feels that this is not due to cardiac ischemia. Case discussed. Phone consult only. Patient/family counseled. Old medical records reviewed. Old records unavailable. Disposition: Discharged. Condition: stable. CLINICAL IMPRESSION Chest wall pain (With a sternotomy wire fracture). Fall. INSTRUCTIONS (Talk with Dr. Freedman about your falls. He may want to evaluate this further or might consider a referral to a neurologist as discussed.). Warnings: Further evaluation is necessary. GENERAL WARNINGS: Return or contact your physician immediately if your condition worsens or changes unexpectedly, if not improving as expected, or if other problems arise. Your Current Medications: CONTINUE TAKING THE FOLLOWING MEDICATIONS: Acetaminophen Oral : Q6H, prn. Albuterol Sulfate Inhalation. ALPRAZolam Oral : 0.5 mg 3x a day, prn. Aspir-81 Oral : daily. Aspirin Oral. Atorvastatin Calcium Oral : 40 mg daily. B-12 Oral : daily. BuPROPion HCl Oral : 150 mg daily. Clopidogrel 75mg x1 daily*. Docusate Sodium Oral : Capsule 100 mg, x2 daily. FLUoxetine HCl Oral : 20 mg daily. Furosemide Oral : 40 mg daily. Ibuprofen Oral : 600 mg 4x a day. Metoprolol Tartrate Oral : 25 mg x2 daily. OxyCODONE HCl Oral : 5 mg 1-2 tabs Q6H. Potassium Chloride ER Oral : Tablet Extended Release 20 meq, 1 tablet daily. Sertraline HCl Oral : 100 mg daily. Vitamin D Oral : Tablet 400 unit, daily. Follow-up: Follow up with a ditching machine engineer Aisha Oneil and Juan. Call for an appointment. Understanding of the discharge instructions verbalized by patient. Follow-up with: Arie Freedman MD, [facility], , [address] [place] [address] Follow up in five days. Call for the next available appointment. (Electronically signed by Justino An MD 06/17/2016 3:43)
--- NOTE | 2016-06-15 12:23 | ED ORDER SUMMARY ---
..... Patient: MICHAEL DELGADO OrderSheet [facility] VisitID: [id number] [address] [place] [address] 50y, F Registration Date/Time: 06/15/2016 ORDER SHEET Weight: 64.4 kg (stated) Allergies: Keflex GENERAL ORDERS: Chest 1V Urgent (10:06/15/2016 Zulma NEWMAN) (Ack 10:25 KHoerner) (10:33 SReitz R.N.) Die Keeper (Continuous) (10:06/15/2016 Zulma NEWMAN) (10:30 KHoerner) CBC w Diff Urgent (10:06/15/2016 Zulma NEWMAN) (Ack 10:25 KHoerner) (10:33 SReitz R.N.) CMP Urgent (:06/15/2016 Zulma NEWMAN) (Ack 10:25 KHoerner) (10:33 SReitz R.N.) UA-Culture if indicated Urgent (10:06/15/2016 Zulma NEWMAN) (Ack 10:25 MARGIoerner) (10:48 SReitz R.N.) PT with INR Urgent (10:06/15/2016 Zulma NEWMAN) (Ack 10:25 KHoerner) (10:33 SReitz R.N.) PTT Urgent (10:06/15/2016 Zulma NEWMAN) (Ack 10:25 KHoerner) (10:33 SReitz R.N.) Amylase Urgent (10:06/15/2016 Zumla NEWMAN) (Ack 10:25 MARGIoerner) (10:33 SReitz R.N.) Lipase Urgent (10:06/15/2016 Zulma NEWMAN) (Ack 10:25 KHoerner) (10:33 SReitz R.N.) D-Dimer Urgent (:06/15/2016 Zulma NEWMAN) (Ack 10:25 KHoerner) (10:33 SReitz R.N.) BNP Urgent (:06/15/2016 Zulma NEWMAN) (Ack 10:25 KHoerner) (10:33 SReitz R.N.) CPK Urgent (10:18 06/15/2016 Zulma NEWMAN) (Ack 10:25 KHoerner) (10:33 Umer R.N.) Troponin-I Urgent (:06/15/2016 Zulma NEWMAN) (Ack 10:25 KHoerner) (10:33 Umer R.N.) Urine Urgent (:06/15/2016 Zulma NEWMAN) (Ack 10:25 KHoerner) (10:48 Umer R.N.) Oxygen (2 L/min) (NC) (:06/15/2016 Zulma NEWMAN) (10:30 KHoerner) Pulse oximeter (:06/15/2016 Zulma NEWMAN) (10:30 KHoerner) EKG - ER Stat (:06/15/2016 Zulma NEWMAN) (Ack 10:25 KHoerner) (10:30 KHoerner) MEDICATION ORDERS: Aspirin PO 325 mg (NOW) (:18 06/15/2016 Zulma NEWMAN) (10:33 Umer R.N.) Tylenol PO 1,000 mg (NOW) (12:08 06/15/2016 Umer R.N. verbal order read back to Zulma NEWMAN) (12:08 Umer R.N.) IV FLUIDS: IV Saline Lock (:06/15/2016 Zulma NEWMAN) (Ack 10:33 Umer R.N.) IV NS : initial bolus none -, then 1000 mL/hr for X1 (250cc bolus) (10:39 06/15/2016 Umer R.N. verbal order read back to Zulma NEWMAN) (10:41 Umer R.N.) Morphine IV 4 mg (HIGH ALERT MEDICATION, NOW) (10:53 06/15/2016 Umer R.N. verbal order read back to Zulma NEWMAN) (10:53 Umer R.N.) ORDER SHEET NOTES: [Electronically signed by Gal Dalal R.N. (12:38 06/15/2016)] [Electronically signed by Justino An MD (03:43 06/17/2016)] [Electronically locked/signed by Gal Dalal R.N. (12:38 06/15/2016)Majo
--- NOTE | 2016-06-15 12:23 | ED NURSING NOTES ---
Clinical Report - Nurses [facility] [address] [place] [address] 06/15/2016 10:12 Patient: MICHAEL DELGADO TRIAGE Triage time 10:19. Acuity: LEVEL 2. Chief Complaint: CHEST PAIN and SHORTNESS OF BREATH (vomiting). Alert. No acute distress. ( Pt. states she recently had a "5 way bypass" and today 30min. 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 She said this is the first time Post op where she has had chest pain and SOB.). SEPSIS SCREEN: Sepsis Screen. Negative (no infection suspected/documented). LAURA COMA SCORE: Laura Coma Scale: 15- eyes open spontaneously (4); best verbal response- oriented x 4 (5); best motor response- obeys commands (6). --10:26 Sydni Galvan R.N. 10:17 06/15/16. BP: 113/91. HR: 110 (tachycardic). RR: 26. O2 saturation: 100% on nasal cannula at 4 liters/minute. Temp: 98.7 F. Pain level now: 10/10. Pain level upon arrival: 10/10. Pain level at maximum: 10/10. Describes the quality as sharp. ("sharp shooting pain."). --10:26 Sydni Galvan R.N. Weight: 64.4 kg stated. Height/Length: 59 inches Per Patient. BMI: 28.7. --10:21 Sydni Galvan R.N. Medications Acetaminophen Oral, Q6H as needed. Albuterol Sulfate Inhalation. ALPRAZolam Oral 0.5 mg, 3x a day as needed. Aspir-81 Oral, daily. Aspirin Oral. Atorvastatin Calcium Oral 40 mg, daily. B-12 Oral, daily. BuPROPion HCl Oral 150 mg, daily. Clopidogrel 75mg x1 daily. Docusate Sodium Oral (Capsule 100 mg), x2 daily. FLUoxetine HCl Oral 20 mg, daily. Furosemide Oral 40 mg, daily. Ibuprofen Oral 600 mg, 4x a day. Metoprolol Tartrate Oral 25 mg, x2 daily. OxyCODONE HCl Oral 5 mg, 1-2 tabs Q6H. Potassium Chloride ER Oral (Tablet Extended Release 20 meq) 1 tablet, daily. Sertraline HCl Oral 100 mg, daily. Vitamin D Oral (Tablet 400 unit), daily. --10:25 Sydni Galvan R.N. Allergies Keflex. --10:25 Sydni Galvan R.N. History Arrived by private vehicle. Historian: patient. Accompanied by family. Primary physician (Dr. Freedman, Electronics Inspector: Keena. Surgeon: Dr. Martinez). This started today. Onset. (30 min.). 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 PAST MEDICAL HX: Immunizations: up-to-date. SOCIAL HX: Heavy tobacco smoker (cigarette)- 1 pack per day (30 year history). Alcohol use; consumes one beer a day. No drug use. ABUSE ASSESSMENT: Abuse assessment: The patient was asked "Do you feel safe in your home?" and "Has anyone hurt you or threatened to hurt you?". No report of abuse. NUTRITIONAL RISK ASSESSMENT: The nutritional risk assessment revealed no deficiencies. FUNCTIONAL ASSESSMENT: Functional assessment: no impairments noted. LEARNING NEEDS ASSESSMENT: The learning needs assessment revealed no barriers. --10:26 Sydni Gavlan R.N. PROBLEMS: Pneumonia. Pleurisy. Congestive Heart Failure. Hyperlipidemia. Heart Disease. Substance Abuse. Depression. Alcohol Intoxication. Anxiety Reaction. Asthma. Bronchitis. --10:25 Sydni Galvan R.N. ADDITIONAL SURGERIES: "5 way bypass" . "Open heart bypass". Cardiac Catheterization. X 2 cardiac caths . --10:26 Sydni Galvan R.N. Interventions ID band on patient. Ambulatory. --10:26 Sydni Galvan R.N. PHYSICAL ASSESSMENT To room via wheelchair. GENERAL / NEURO / PSYCH: Alert. Oriented X 4. Appears anxious. ( Pt. tearful). HEENT: Mucous membranes are pink. RESPIRATORY: Respirations not labored. CVS: Pulses within normal limits. Capillary refill less than 2 seconds. GI / : Abdomen soft and nontender. EXTREMITIES: No lower extremity edema. SKIN: Skin is warm and dry. Skin is non-tender. --10:26 Sydni Galvan R.N. NURSING PROGRESS NOTES awake overnight monitor, pulse oximeter and NIBP monitor placed on patient; panel monitor- Lead II; monitor alarms on. Patient gowned. Head of bed elevated. Two patient identifiers checked. Call light placed in reach. Side rails up x 2. Bed placed in lowest position. Brakes of bed on. Patient ready for evaluation- chart flagged. --10:26 Sydni Galvan R.N. 10:27 06/15/2016 Site #1 started via IV in the right hand with an 20g angiocath, with aseptic technique and good blood return; one attempt. Blood drawn: rainbow set. Labeled in the presence of the patient and sent to the lab. Saline lock flushed with 10 mL saline (Accessed by JEFFERSON Lincoln). --10:27 Sydni Galvan R.N. Portable chest x-ray performed and shown to the ED physician. --10:28 Sydni Galvan R.N. 10:30 06/15/2016 Aspirin PO 325 mg given. Allergies verified and confirmed 5 rights. --10:33 Sydni Galvan R.N. 10:38 06/15/2016 Site #2 started via IV in the left antecubital space with an 20g angiocath, with aseptic technique and good blood return; one attempt. Saline lock flushed (accessed by Gal Ferreira RN). --10:38 Sydni Galvan R.N. 10:38 06/15/16. BP: 105/70. HR: 98. RR: 16. O2 saturation: 100% on nasal cannula at 4 liters/minute. Pain level now: 09/17. --10:39 Sydni Galvan R.N. 10:41 06/15/2016 Started bag #1 1000 mL IV Fluids IV NS (Saline); at 999 mL/hr over 15 minute(s) via site #2 via IV pump. Allergies verified and confirmed 5 rights. IV patency established. IV site checked: no pain, redness, or swelling. IV flushed thoroughly pre- and post-medication administration. --10:41 Cole, Sydni, R.N. Patient ID band checked for patient name, birthdate and medical record number: patient confirmed. Instructions provided to collect clean catch urine and patient verbalized understanding. Catheterized urine collected with return of yellow-colored clear urine; sample sent to lab for urinalysis. Specimen labeled in the presence of the patient. --10:48 Sydni Galvan R.N. 10:48 06/15/16. BP: 123/92. HR: 90. RR: 14. O2 saturation: 97%. Pain level now 09/17. --10:48 Sydni Galvan R.N. 10:53 06/15/2016 Morphine IVP 4 mg given over 2 minute(s) via site #2. Allergies verified, confirmed 5 rights and sedative warning given to the patient. IV patency established. IV site checked: no pain, redness, or swelling. IV flushed thoroughly pre- and post-medication administration. --10:53 Sydni Galvan R.N. EKG time: (1015). EKG was ordered, performed by a tech and shown to the ED physician. --10:53 Sydni Galvan R.N. 10:54 06/15/2016 IV Fluids IV NS Discontinued: infused. Total amount infused: 250 mL. IV patency established. IV site checked: no pain, redness, or swelling. IV flushed thoroughly. --10:54 Sydni Galvan R.N. 10:56 06/15/2016 Morphine IVP Response: no adverse reaction pain is improving. The patient feels better. (6/10 pain. Pt. appears less tearful and anxious at this time.). --10:56 Sydni Galvan R.N. EKG time: (10:23 AM). EKG was performed by a tech and shown to the ED physician. --11:29 Aleta Goyal Assisted patient to bedside commode; tolerated well. --12:05 Sydni Galvan R.N. 12:05 06/15/16. BP: 112/89. HR: 83. RR: 12. O2 saturation: 97% on nasal cannula at 4 liters/minute. Pain level now: 05/18. --12:05 Sydni Galvan R.N. 12:08 06/15/2016 Tylenol (Acetaminophen) PO 1000 mg given. Allergies verified and confirmed 5 rights. --12: Sydni Galvan R.N. DISPOSITION / DISCHARGE 12:06/15/2016 Site #2 removed upon discharge. Catheter intact. --12:32 Gal Dalal R.N. 12:32 06/15/2016 Site #1 removed upon discharge. Catheter intact. Bandaid applied. --12:32 Gal Dalal R.N. 12:06/15/16. Condition at departure: improved. The goals identified in the patient's plan of care were met. No learning barriers present. Discharge instructions provided and reviewed with the patient. Reviewed warnings. Reviewed medication(s). Treatments reviewed. Patient verbalized understanding. Written instructions provided in Scottish. The patient was discharged by the physician. She was discharged home and accompanied by family. She left the Emergency Department ambulatory and via private vehicle. Family member driving. FALL RISK ASSESSMENT: Fall risk assessment completed. No fall risk identified. --12:33 Gal Dalal R.N. 12:32 06/15/16. BP: 111/87. HR: 81. RR: 14. O2 saturation: 100% on room air. Temp: 98.1 F (oral). Pain level now: 03/20. --12:33 Gal Dalal R.N. 12:33 06/15/16. Departure time: 12:33. --12:33 Gal Dalal R.N. Locked/Released at 06/15/2016 12:38 by Gal Dalal R.N.
--- NOTE | 2016-06-15 12:23 | ED NURSING NOTES ---
Clinical Report - Nurses [facility] [address] [place] [address] 06/15/2016 10:12 Patient: MICHAEL DELGADO TRIAGE Triage time 10:19. Acuity: LEVEL 2. Chief Complaint: CHEST PAIN and SHORTNESS OF BREATH (vomiting). Alert. No acute distress. ( Pt. states she recently had a "5 way bypass" and today 30min. 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 She took x2 nitro with no relief SENIOR PROGRAMMER. She said this is the first time Post op where she has had chest pain and SOB.). SEPSIS SCREEN: Sepsis Screen. Negative (no infection suspected/documented). LAURA COMA SCORE: Laura Coma Scale: 15- eyes open spontaneously (4); best verbal response- oriented x 4 (5); best motor response- obeys commands (6). --10:26 Sydni Galvan R.N. 10:17 06/15/16. BP: 113/91. HR: 110 (tachycardic). RR: 26. O2 saturation: 100% on nasal cannula at 4 liters/minute. Temp: 98.7 F. Pain level now: 10/10. Pain level upon arrival: 10/10. Pain level at maximum: 10/10. Describes the quality as sharp. ("sharp shooting pain."). --10:26 Sydni Galvan R.N. Weight: 64.4 kg stated. Height/Length: 59 inches Per Patient. BMI: 28.7. --10:21 Sydni Galvan R.N. Medications Acetaminophen Oral, Q6H as needed. Albuterol Sulfate Inhalation. ALPRAZolam Oral 0.5 mg, 3x a day as needed. Aspir-81 Oral, daily. Aspirin Oral. Atorvastatin Calcium Oral 40 mg, daily. B-12 Oral, daily. BuPROPion HCl Oral 150 mg, daily. Clopidogrel 75mg x1 daily. Docusate Sodium Oral (Capsule 100 mg), x2 daily. FLUoxetine HCl Oral 20 mg, daily. Furosemide Oral 40 mg, daily. Ibuprofen Oral 600 mg, 4x a day. Metoprolol Tartrate Oral 25 mg, x2 daily. OxyCODONE HCl Oral 5 mg, 1-2 tabs Q6H. Potassium Chloride ER Oral (Tablet Extended Release 20 meq) 1 tablet, daily. Sertraline HCl Oral 100 mg, daily. Vitamin D Oral (Tablet 400 unit), daily. --10:25 Sydni Galvan R.N. Allergies Keflex. --10:25 Sydni Galvan R.N. History Arrived by private vehicle. Historian: patient. Accompanied by family. Primary physician (Dr. Freedman, Floral Manager: Keena. Surgeon: Dr. Martinez). This started today. Onset. (30 min.). Treatment SENIOR PROGRAMMER: (x2 nitro Sl, Xanax 0.5mg PO, Ibuprofen). PAST MEDICAL HX: Immunizations: up-to-date. SOCIAL HX: Heavy tobacco smoker (cigarette)- 1 pack per day (30 year history). Alcohol use; consumes one beer a day. No drug use. ABUSE ASSESSMENT: Abuse assessment: The patient was asked "Do you feel safe in your home?" and "Has anyone hurt you or threatened to hurt you?". No report of abuse. NUTRITIONAL RISK ASSESSMENT: The nutritional risk assessment revealed no deficiencies. FUNCTIONAL ASSESSMENT: Functional assessment: no impairments noted. LEARNING NEEDS ASSESSMENT: The learning needs assessment revealed no barriers. --10:26 Sydni Galvan R.N. PROBLEMS: Pneumonia. Pleurisy. Congestive Heart Failure. Hyperlipidemia. Heart Disease. Substance Abuse. Depression. Alcohol Intoxication. Anxiety Reaction. Asthma. Bronchitis. --10:25 Sydni Galvan R.N. ADDITIONAL SURGERIES: "5 way bypass" . "Open heart bypass". Cardiac Catheterization. X 2 cardiac caths . --10:26 Sydni Galvan R.N. Interventions ID band on patient. Ambulatory. --10:26 Sydni Galvan R.N. PHYSICAL ASSESSMENT To room via wheelchair. GENERAL / NEURO / PSYCH: Alert. Oriented X 4. Appears anxious. ( Pt. tearful). HEENT: Mucous membranes are pink. RESPIRATORY: Respirations not labored. CVS: Pulses within normal limits. Capillary refill less than 2 seconds. GI / : Abdomen soft and nontender. EXTREMITIES: No lower extremity edema. SKIN: Skin is warm and dry. Skin is non-tender. --10:26 Sydni Galvan R.N. NURSING PROGRESS NOTES quality assurance monitor body, pulse oximeter and NIBP monitor placed on patient; monitor and storage bin tender- Lead II; monitor alarms on. Patient gowned. Head of bed elevated. Two patient identifiers checked. Call light placed in reach. Side rails up x 2. Bed placed in lowest position. Brakes of bed on. Patient ready for evaluation- chart flagged. --10:26 Sydni Galvan R.N. 10:27 06/15/2016 Site #1 started via IV in the right hand with an 20g angiocath, with aseptic technique and good blood return; one attempt. Blood drawn: rainbow set. Labeled in the presence of the patient and sent to the lab. Saline lock flushed with 10 mL saline (Accessed by JEFFERSON Lincoln). --10:27 Sydni Galvan R.N. Portable chest x-ray performed and shown to the ED physician. --10:28 Sydni Galvan R.N. 10:30 06/15/2016 Aspirin PO 325 mg given. Allergies verified and confirmed 5 rights. --10:33 Sydni Galvan R.N. 10:38 06/15/2016 Site #2 started via IV in the left antecubital space with an 20g angiocath, with aseptic technique and good blood return; one attempt. Saline lock flushed (accessed by Gal Ferreira RN). --10:38 Sydni Galvan R.N. 10:38 06/15/16. BP: 105/70. HR: 98. RR: 16. O2 saturation: 100% on nasal cannula at 4 liters/minute. Pain level now: 09/17. --10:39 Sydni Galvan R.N. 10:41 06/15/2016 Started bag #1 1000 mL IV Fluids IV NS (Saline); at 999 mL/hr over 15 minute(s) via site #2 via IV pump. Allergies verified and confirmed 5 rights. IV patency established. IV site checked: no pain, redness, or swelling. IV flushed thoroughly pre- and post-medication administration. --10:41 Cole, Sydni, R.N. Patient ID band checked for patient name, birthdate and medical record number: patient confirmed. Instructions provided to collect clean catch urine and patient verbalized understanding. Catheterized urine collected with return of yellow-colored clear urine; sample sent to lab for urinalysis. Specimen labeled in the presence of the patient. --10:48 Sydni Galvan R.N. 10:48 06/15/16. BP: 123/92. HR: 90. RR: 14. O2 saturation: 97%. Pain level now 09/17. --10:48 Sydni Galvan R.N. 10:53 06/15/2016 Morphine IVP 4 mg given over 2 minute(s) via site #2. Allergies verified, confirmed 5 rights and sedative warning given to the patient. IV patency established. IV site checked: no pain, redness, or swelling. IV flushed thoroughly pre- and post-medication administration. --10:53 Sydni Galvan R.N. EKG time: (1015). EKG was ordered, performed by a tech and shown to the ED physician. --10:53 Sydni Galvan R.N. 10:54 06/15/2016 IV Fluids IV NS Discontinued: infused. Total amount infused: 250 mL. IV patency established. IV site checked: no pain, redness, or swelling. IV flushed thoroughly. --10:54 Sydni Galvan R.N. 10:56 06/15/2016 Morphine IVP Response: no adverse reaction pain is improving. The patient feels better. (6/10 pain. Pt. appears less tearful and anxious at this time.). --10:56 Sydni Galvan R.N. EKG time: (10:23 AM). EKG was performed by a tech and shown to the ED physician. --11:29 Aleta Goyal Assisted patient to bedside commode; tolerated well. --12:05 Sydni Galvan R.N. 12:05 06/15/16. BP: 112/89. HR: 83. RR: 12. O2 saturation: 97% on nasal cannula at 4 liters/minute. Pain level now: 05/18. --12:05 Sydni Galvan R.N. 12:08 06/15/2016 Tylenol (Acetaminophen) PO 1000 mg given. Allergies verified and confirmed 5 rights. --12: Sydni Galvan R.N. DISPOSITION / DISCHARGE 12:06/15/2016 Site #2 removed upon discharge. Catheter intact. --12:32 Gal Dalal R.N. 12:32 06/15/2016 Site #1 removed upon discharge. Catheter intact. Bandaid applied. --12:32 Gal Dalal R.N. 12:06/15/16. Condition at departure: improved. The goals identified in the patient's plan of care were met. No learning barriers present. Discharge instructions provided and reviewed with the patient. Reviewed warnings. Reviewed medication(s). Treatments reviewed. Patient verbalized understanding. Written instructions provided in [place]. The patient was discharged by the physician. She was discharged home and accompanied by family. She left the Emergency Department ambulatory and via private vehicle. Family member driving. FALL RISK ASSESSMENT: Fall risk assessment completed. No fall risk identified. --12:33 Gal Dalal R.N. 12:32 06/15/16. BP: 111/87. HR: 81. RR: 14. O2 saturation: 100% on room air. Temp: 98.1 F (oral). Pain level now: 03/20. --12:33 Gal Dalal R.N. 12:33 06/15/16. Departure time: 12:33. --12:33 Gal Dalal R.N. Locked/Released at 06/15/2016 12:38 by Gal Dalal R.N.
--- NOTE | 2016-06-15 12:23 | ED ORDER SUMMARY ---
..... Patient: MICHAEL DELGADO OrderSheet [facility] VisitID: [id number] [address] [place] [address] 50y, F Registration Date/Time: 06/15/2016 ORDER SHEET Weight: 64.4 kg (stated) Allergies: Keflex GENERAL ORDERS: Chest 1V Urgent (10:06/15/2016 Zulma NEWMAN) (Ack 10:25 KHoerner) (10:33 SReitz R.N.) Financial Planning Analyst (Continuous) (10:06/15/2016 Zulma NEWMAN) (10:30 KHoerner) CBC w Diff Urgent (10:06/15/2016 Zulma NEWMAN) (Ack 10:25 KHoerner) (10:33 SReitz R.N.) CMP Urgent (:06/15/2016 Zulma NEWMAN) (Ack 10:25 KHoerner) (10:33 SReitz R.N.) UA-Culture if indicated Urgent (10:06/15/2016 Zulma NEWMAN) (Ack 10:25 MARGIoerner) (10:48 SReitz R.N.) PT with INR Urgent (10:06/15/2016 Zulma NEWMAN) (Ack 10:25 KHoerner) (10:33 SReitz R.N.) PTT Urgent (10:06/15/2016 Zulma NEWMAN) (Ack 10:25 KHoerner) (10:33 SReitz R.N.) Amylase Urgent (10:06/15/2016 Zulma NEWMAN) (Ack 10:25 MARGIoerner) (10:33 SReitz R.N.) Lipase Urgent (10:06/15/2016 Zulma NEWMAN) (Ack 10:25 KHoerner) (10:33 SReitz R.N.) D-Dimer Urgent (:06/15/2016 Zulma NEWMAN) (Ack 10:25 KHoerner) (10:33 SReitz R.N.) BNP Urgent (:06/15/2016 Zulma NEWMAN) (Ack 10:25 KHoerner) (10:33 SReitz R.N.) CPK Urgent (10:18 06/15/2016 Zulma NEWMAN) (Ack 10:25 KHoerner) (10:33 Umer R.N.) Troponin-I Urgent (:06/15/2016 Zulma NEWMAN) (Ack 10:25 KHoerner) (10:33 Umer R.N.) Urine Urgent (:06/15/2016 Zulma NEWMAN) (Ack 10:25 KHoerner) (10:48 Umer R.N.) Oxygen (2 L/min) (NC) (:06/15/2016 Zulma NEWMAN) (10:30 KHoerner) Pulse oximeter (:06/15/2016 Zulma NEWMAN) (10:30 KHoerner) EKG - ER Stat (:06/15/2016 Zulma NEWMAN) (Ack 10:25 KHoerner) (10:30 KHoerner) MEDICATION ORDERS: Aspirin PO 325 mg (NOW) (:18 06/15/2016 Zulma NEWMAN) (10:33 Umer R.N.) Tylenol PO 1,000 mg (NOW) (12:08 06/15/2016 Umer R.N. verbal order read back to Zulma NEWMAN) (12:08 Umer R.N.) IV FLUIDS: IV Saline Lock (:06/15/2016 Zulma NEWMAN) (Ack 10:33 Umer R.N.) IV NS : initial bolus none -, then 1000 mL/hr for X1 (250cc bolus) (10:39 06/15/2016 Umer R.N. verbal order read back to Zulma NEWMAN) (10:41 Umer R.N.) Morphine IV 4 mg (HIGH ALERT MEDICATION, NOW) (10:53 06/15/2016 Umer R.N. verbal order read back to Zulma NEWMAN) (10:53 Umer R.N.) ORDER SHEET NOTES: [Electronically signed by Gal Dalal R.N. (12:38 06/15/2016)] [Electronically signed by Justino An MD (03:43 06/17/2016)] [Electronically locked/signed by Gal Dalal R.N. (12:38 06/15/2016)Majo
--- NOTE | 2016-06-17 03:43 | ED MAR SUMMARY ---
..... Medication Administration Record [address] [place] [address] Patient: MICHAEL DELGADO Visit ID: [id number] 50y, F Weight: 64.4 kg Height/Length: 59 in BMI: 28.7 ALLERGIES: Keflex Given 10:30 06/15/2016 Sydni Galvan R.N. Medication Administered: ASPIRIN [PO], Dose: 325 mg PO. Medication Ordered: Aspirin PO 325 mg (NOW). Start 10:41 06/15/2016 Sydni Galvan R.N., Stop 10:54 06/15/2016 Sydni Galvan R.N. Medication Administered: IV NS (SALINE), Dose: IV Fluids over 15 minute(s), Rate: 999 mL/hr, Dispensed: 1000 mL bag, Site: #2 left AC. Medication Ordered: IV NS : initial bolus none -, then 1000 mL/hr for X1 (250cc bolus). Given 10:53 06/15/2016 Sydni Galvan R.N. Medication Administered: MORPHINE [IVP], Dose: 4 mg IVP over 2 minute(s), Site: #2 left AC. Medication Ordered: Morphine IV 4 mg (HIGH ALERT MEDICATION, NOW). Given 12:08 06/15/2016 Sydni Galvan R.N. Medication Administered: TYLENOL [PO] (ACETAMINOPHEN), Dose: 1000 mg PO. Medication Ordered: Tylenol PO 1,000 mg (NOW).
--- NOTE | 2016-06-17 03:43 | ED MAR SUMMARY ---
..... Medication Administration Record [facility] [address] [place] [address] Patient: MICHAEL DELGADO Visit ID: [id number] 50y, F Weight: 64.4 kg Height/Length: 59 in BMI: 28.7 ALLERGIES: Keflex Given 10:30 06/15/2016 Sydni Galvan R.N. Medication Administered: ASPIRIN [PO], Dose: 325 mg PO. Medication Ordered: Aspirin PO 325 mg (NOW). Start 10:41 06/15/2016 Sydni Galvan R.N., Stop 10:54 06/15/2016 Sydni Galvan R.N. Medication Administered: IV NS (SALINE), Dose: IV Fluids over 15 minute(s), Rate: 999 mL/hr, Dispensed: 1000 mL bag, Site: #2 left AC. Medication Ordered: IV NS : initial bolus none -, then 1000 mL/hr for X1 (250cc bolus). Given 10:53 06/15/2016 Sydni Galvan R.N. Medication Administered: MORPHINE [IVP], Dose: 4 mg IVP over 2 minute(s), Site: #2 left AC. Medication Ordered: Morphine IV 4 mg (HIGH ALERT MEDICATION, NOW). Given 12:08 06/15/2016 Sydni Galvan R.N. Medication Administered: TYLENOL [PO] (ACETAMINOPHEN), Dose: 1000 mg PO. Medication Ordered: Tylenol PO 1,000 mg (NOW).
--- NOTE | 2016-06-17 03:43 | ED DISCHARGE INSTRUCTIONS ---
Patient: MICHAEL DELGADO General Instructions [facility] VisitID: [id number] [address], [place] [id number] 50y, F Registration Date/Time: 06/15/2016 Chest wall pain (With a sternotomy wire fracture). Fall. INSTRUCTIONS (Talk with Dr. Freedman about your falls. He may want to evaluate this further or might consider a referral to a neurologist as discussed.). Warnings: Further evaluation is necessary. GENERAL WARNINGS: Return or contact your physician immediately if your condition worsens or changes unexpectedly, if not improving as expected, or if other problems arise. Your Current Medications: CONTINUE TAKING THE FOLLOWING MEDICATIONS: Acetaminophen Oral : Q6H, prn. Albuterol Sulfate Inhalation. ALPRAZolam Oral : 0.5 mg 3x a day, prn. Aspir-81 Oral : daily. Aspirin Oral. Atorvastatin Calcium Oral : 40 mg daily. B-12 Oral : daily. BuPROPion HCl Oral : 150 mg daily. Clopidogrel 75mg x1 daily*. Docusate Sodium Oral : Capsule 100 mg, x2 daily. FLUoxetine HCl Oral : 20 mg daily. Furosemide Oral : 40 mg daily. Ibuprofen Oral : 600 mg 4x a day. Metoprolol Tartrate Oral : 25 mg x2 daily. OxyCODONE HCl Oral : 5 mg 1-2 tabs Q6H. Potassium Chloride ER Oral : Tablet Extended Release 20 meq, 1 tablet daily. Sertraline HCl Oral : 100 mg daily. Vitamin D Oral : Tablet 400 unit, daily. Follow-up: Follow up with a cork sorter Aisha Oneil and Juan. Call for an appointment. Understanding of the discharge instructions verbalized by patient. Follow-up with: Arie Freedman MD, [facility], , [address] [place] [address] Follow up in five days. Call for the next available appointment. ADDITIONAL INFORMATION Chest Strain A strain of the chest is due to stretching and tearing of the muscle fibers between the ribs. This may occur as a result of severe coughing, strenuous lifting or twisting injuries of the upper back. This usually causes increased pain with movement or deep breathing. This may take a few days to a few weeks to heal. Home Care: Rest. Avoid heavy lifting or strenuous exertion. Avoid any activity that causes pain. If you have a severe cough, use a cough syrup such as Robitussin DM (containing dextromethorphan) unless another cough medicine was prescribed. You may use acetaminophen (Tylenol) or ibuprofen (Motrin, Advil) to control pain, unless another medicine was prescribed. [ NOTE: If you have chronic liver or kidney disease or ever had a stomach ulcer or GI bleeding, talk with your doctor before using these medicines.] Follow Up with your doctor as directed. Get Prompt Medical Attention if any of the following occur: A change in the type of pain: if it feels different, becomes more severe, lasts longer, or begins to spread into your shoulder, arm, neck, jaw or back Shortness of breath or increased pain with breathing Cough with dark colored sputum (phlegm) or blood Weakness, dizziness, or fainting Fever of 100.4F (38C) or higher, or as directed by your healthcare provider Fall, Uncertain Cause You have had a fall today. but the cause of your fall is not certain. Falls can occur due to slipping, tripping or losing your balance. A fall can also occur from a fainting spell or seizure. Because the cause of your fall today is not certain, it is possible that a fainting spell or seizure was the cause. This means that it could happen again, without warning. If you fall again, without a cause, then you should return to this facility promptly to have further tests. Otherwise, follow up with your doctor as explained below. Home Care: 1) Rest today and resume your normal activities as soon as you are feeling back to normal. It is best to remain with someone who can check on you for the next 24 hours to watch for another episode of falling. 2) If you were injured during the fall, follow the advice from your doctor regarding care of your injury. 3) If you become light-headed or dizzy, lie down immediately or sit and lean forward with your head down. 4) As a precaution, do not drive a car or operate dangerous equipment, do not take a bath alone (use a shower instead) and do not swim alone until you see your doctor. A condition causing fainting or seizures must be ruled out before resuming these activities. 5)You may use acetaminophen (Tylenol) or ibuprofen (Motrin, Advil) to control pain, unless another pain medicine was prescribed. [ NOTE : If you have chronic liver or kidney disease or ever had a stomach ulcer or GI bleeding, talk with your doctor before using these medicines.] 6) Keep your appointments for any further testing that may have been scheduled for you. Follow Up: Unless, given other advice, call your doctor on the next office day to advise of your fall and to schedule an appointment. Get Prompt Medical Attention if any of the following occur: -- Another unexplained fall -- Dizziness, fainting or seizure -- Severe headache -- Chest pain or shortness of breath -- Palpitations (very rapid or very slow or irregular heart beat) -- Blood in vomit, stools (black or red color) -- Weakness of an arm or leg or one side of the face -- Difficulty with speech or vision You have been given the following additional information: Chest Wall Strain Fall, Uncertain Cause (Electronically signed by Justino An MD 06/17/2016 3:43)
--- NOTE | 2016-06-17 03:43 | ED MED RECONCILIATION SUMMARY ---
Patient: MICHAEL DELGADO Medication Reconciliation Report [facility] VisitID: [id number] [address] [place] [address] 50y, F Registration Date/Time: 06/15/2016 Weight: 64.4 kg Height/Length: 59 in. BMI: 28.7 ALLERGIES: Keflex The patient's Home Medications are listed below: CONTINUE TAKING THE FOLLOWING MEDICATIONS: Acetaminophen Oral, Q6H Albuterol Sulfate Inhalation ALPRAZolam Oral 0.5 mg, 3x a day Aspir-81 Oral, daily Aspirin Oral Atorvastatin Calcium Oral 40 mg, daily B-12 Oral, daily BuPROPion HCl Oral 150 mg, daily Clopidogrel 75mg x1 daily Docusate Sodium Oral (100 mg), x2 daily FLUoxetine HCl Oral 20 mg, daily Furosemide Oral 40 mg, daily Ibuprofen Oral 600 mg, 4x a day Metoprolol Tartrate Oral 25 mg, x2 daily OxyCODONE HCl Oral 5 mg, 1-2 tabs Q6H Potassium Chloride ER Oral (20 meq) 1 tablet, daily Sertraline HCl Oral 100 mg, daily Vitamin D Oral (400 unit), daily The source(s) of the original Home Medication information: Not obtained. The following Medications were given to the patient in the Emergency Department: Aspirin [PO] PO 325 mg, administered: 06/15/2016 10:30:00 AM IV NS IV Fluids bolus 0, then 999 mL/hr, administered: 06/15/2016 10:41:00 AM Morphine [IVP] IVP 4 mg, administered: 06/15/2016 10:53:00 AM Tylenol [PO] PO 1000 mg, administered: 06/15/2016 12:08:00 PM The following Medications were prescribed to the patient: None.
--- NOTE | 2016-06-17 03:43 | ED MED RECONCILIATION SUMMARY ---
Patient: MICHAEL DELGADO Medication Reconciliation Report [facility] VisitID: [id number] [address] [place] [address] 50y, F Registration Date/Time: 06/15/2016 Weight: 64.4 kg Height/Length: 59 in. BMI: 28.7 ALLERGIES: Keflex The patient's Home Medications are listed below: CONTINUE TAKING THE FOLLOWING MEDICATIONS: Acetaminophen Oral, Q6H Albuterol Sulfate Inhalation ALPRAZolam Oral 0.5 mg, 3x a day Aspir-81 Oral, daily Aspirin Oral Atorvastatin Calcium Oral 40 mg, daily B-12 Oral, daily BuPROPion HCl Oral 150 mg, daily Clopidogrel 75mg x1 daily Docusate Sodium Oral (100 mg), x2 daily FLUoxetine HCl Oral 20 mg, daily Furosemide Oral 40 mg, daily Ibuprofen Oral 600 mg, 4x a day Metoprolol Tartrate Oral 25 mg, x2 daily OxyCODONE HCl Oral 5 mg, 1-2 tabs Q6H Potassium Chloride ER Oral (20 meq) 1 tablet, daily Sertraline HCl Oral 100 mg, daily Vitamin D Oral (400 unit), daily The source(s) of the original Home Medication information: Not obtained. The following Medications were given to the patient in the Emergency Department: Aspirin [PO] PO 325 mg, administered: 06/15/2016 10:30:00 AM IV NS IV Fluids bolus 0, then 999 mL/hr, administered: 06/15/2016 10:41:00 AM Morphine [IVP] IVP 4 mg, administered: 06/15/2016 10:53:00 AM Tylenol [PO] PO 1000 mg, administered: 06/15/2016 12:08:00 PM The following Medications were prescribed to the patient: None.
== END 2016-06-15 12:33 | disposition home or self-care (01) ==
LOC: ED SRH 10:12
DX: R07.89 Other chest pain (principal); W19.XXXA Unspecified fall, initial encounter; Y93.9 Activity, unspecified; Y92.9 Unspecified place or not applicable; Y99.9 Unspecified external cause status; Z79.899 Other long term (current) drug therapy; F17.210 Nicotine dependence, cigarettes, uncomplicated; Z79.82 Long term (current) use of aspirin; Z88.8 Allergy status to other drugs, medicaments and biological substances
CPT/HCPCS: 90004; 90100; 90616; 91320; 91556; 92235; 92530; 92610; 93070; 94001; 94060; 95059